=== PATIENT | male | born 1940 | race Caucasian/White ===

== ENCOUNTER 2018-01-08 16:57 | Inpatient (IN) | payer MEDICARE ==
[~2018-01-08] VITALS: Ht 182.9 cm; Wt 73.0 kg
[2018-01-08 17:02] VITALS: BP 160/77; PULSE 93; RESP 18; TEMP 98.4; O2SAT 95
--- NOTE | 2018-01-08 17:32 | PD ---
HPI Chief Complaint: Fall Time Seen by Provider: 17:13 Travel History International Travel<30 days: No Contact w/Intl Traveler<30days: No Traveled to known affect area: No History of Present Illness HPI 77 YO M presents to the ED via EMS for evaluation after fall at home. On Xarelto 2/2 to PMH of DVT. The patient states that he got tangled in his walker while going to the bathroom today. He states that he fell and hit his head on the floor. He arrives on a backboard and wearing a c-collar. He endorses pain in the left forehead. He denies dizziness, headache, vision changes, CP, palpitations, abd pain N/V, dysuria, weakness of the extremities. He denies recent history of fever, chills, cold or flu symptoms. He states that he lives at home alone. PCP, Dr. Dooley. Neuro, Dr. Monterroso. [facility] Social History Tobacco Use: No Allergies-Medications (Allergen,Severity, Reaction): Coded Allergies: No Known Allergies (Unverified , 01/08/18) Reported Meds & Prescriptions Reported Meds & Active Scripts Active Reported Potassium Chloride ER (Potassium Chloride) 8 Meq Cap Unknown Dose PO BID Furosemide 20 Mg Tab 20 Mg PO DAILY Xarelto (Rivaroxaban) 10 Mg Tab Unknown Dose PO DAILY Levothyroxine (Levothyroxine Sodium) 25 Mcg Tab Unknown Dose PO DAILY Review of Systems ROS Limitations: Speech Impaired Except as stated in HPI: all other systems reviewed are Neg Physical Exam Exam Limitations: Other: (speech impaired) Narrative GENERAL: Well-nourished, well-developed, pale white male in no acute distress. Patient was cleared off the backboard. SKIN: Focused skin assessment warm/dry. 5cm laceration on the left frontal scalp HEAD: Normocephalic. No tenderness to palpation of the skull bones. No tenderness to palpation of the facial bones. No bony step-offs. No ruiz sign or raccoon eyes. EYES: No scleral icterus. No injection or drainage. EOMI. NECK: Supple, trachea midline. No JVD or lymphadenopathy. C-collar in place pending cervical spinal CT. CARDIOVASCULAR: Regular rate and rhythm without murmurs, gallops, or rubs. RESPIRATORY: Breath sounds clear and equal bilaterally. No accessory muscle use. GASTROINTESTINAL: Abdomen soft, non-tender, nondistended. Active bowel sounds. MUSCULOSKELETAL: No cyanosis, or edema. NEUROLOGICAL: Awake and alert. Cranial nerves II through XII intact. Motor and sensory grossly within normal limits. Five out of 5 muscle strength in all muscle groups. Soft, garbled speech. Answers questions appropriately. BACK: Nontender without obvious deformity. No CVA tenderness. Data Data Last Documented VS Vital Signs Date Time Temp Pulse Resp B/P (MAP) Pulse Ox O2 Delivery O2 Flow Rate FiO2 01/08/18 19:15 74 16 154/72 (99) 98 Room Air 01/08/18 17:[address] Brain W/O Iv Contrast(Rout) (01/08/18 ) Ct Cerv Spine W/O Contrast (01/08/18 ) Complete Blood Count With Diff (01/08/18 17:20) Comprehensive Metabolic Panel (01/08/18 17:20) Prothrombin Time / Inr (Pt) (01/08/18 17:20) Act Partial Throm Time (Ptt) (01/08/18 17:20) Urinalysis - C+S If Indicated (01/08/18 17:20) Iv Access Insert/Monitor (01/08/18 17:20) Ecg Monitoring (01/08/18 17:20) Oximetry (01/08/18 17:20) Electrocardiogram (01/08/18 17:20) Tetanus/Diphtheria Tox Adult (Tetanus/Di (01/08/18 17:45) Consult Neurosurgery (01/08/18 ) (Hub Use Only)Inp Phy Cons/Ref (01/08/18 ) Admit Order (Ed Use Only) (01/08/18 20:52) Labs Laboratory Tests Test 01/08/18 17:25 01/08/18 19:45 White Blood Count 5.9 TH/MM3 Red Blood Count 3.73 MIL/MM3 Hemoglobin 11.9 GM/DL Hematocrit 34.9 % Mean Corpuscular Volume 93.7 FL Mean Corpuscular Hemoglobin 31.9 PG Mean Corpuscular Hemoglobin Concent 34.0 % Red Cell Distribution Width 13.2 % Platelet Count 236 TH/MM3 Mean Platelet Volume 8.9 FL Neutrophils (%) (Auto) 71.9 % Lymphocytes (%) (Auto) 16.2 % Monocytes (%) (Auto) 8.8 % Eosinophils (%) (Auto) 2.1 % Basophils (%) (Auto) 1.0 % Neutrophils # (Auto) 4.3 TH/MM3 Lymphocytes # (Auto) 1.0 TH/MM3 Monocytes # (Auto) 0.5 TH/MM3 Eosinophils # (Auto) 0.1 TH/MM3 Basophils # (Auto) 0.1 TH/MM3 CBC Comment DIFF FINAL Differential Comment Prothrombin Time 11.5 SEC Prothromb Time International Ratio 1.1 RATIO Activated Partial Thromboplast Time 26.6 SEC Blood Urea Nitrogen 31 MG/DL Creatinine 1.31 MG/DL Random Glucose 123 MG/DL Total Protein 6.5 GM/DL Albumin 3.3 GM/DL Calcium Level 8.8 MG/DL Alkaline Phosphatase 119 U/L Aspartate Amino Transf (AST/SGOT) 25 U/L Alanine Aminotransferase (ALT/SGPT) 19 U/L Total Bilirubin 0.3 MG/DL Sodium Level 142 MEQ/L Potassium Level 3.9 MEQ/L Chloride Level 106 MEQ/L Carbon Dioxide Level 24.2 MEQ/L Anion Gap 12 MEQ/L Estimat Glomerular Filtration Rate 53 ML/MIN Urine Color YELLOW Urine Turbidity CLEAR Urine pH 6.5 Urine Specific [place] 1.012 Urine Protein TRACE mg/dL Urine Glucose (UA) NEG mg/dL Urine Ketones NEG mg/dL Urine Occult Blood NEG Urine Nitrite NEG Urine Bilirubin NEG Urine Urobilinogen LESS THAN 2.0 MG/DL Urine Leukocyte Esterase NEG Urine RBC LESS THAN 1 /hpf Urine WBC LESS THAN 1 /hpf Microscopic Urinalysis Comment CULT NOT INDICATED MDM Medical Decision Making Medical Screen Exam Complete: Yes Emergency Medical Condition: Yes Differential Diagnosis fall versus laceration versus ICH versus metabolic derangement versus other Narrative Course 77 YO M with PMH of DVT, on Xarelto, presents to the ED via EMS for evaluation after fall at home. The patient states that he got tangled in his walker while going to the bathroom today. He denies LOC. He endorses pain in the left forehead. He denies dizziness, headache, vision changes, CP, palpitations, abd pain N/V, dysuria, weakness of the extremities, recent history of fever, chills , cold or flu symptoms. He states that he lives at home alone. Pulse 93, BP 160 /77 on presentation. On exam this is a white male in no acute distress. He has garbled speech which makes history gathering difficult. He states this is his baseline. Laceration over the left frontal scalp. No focal neuro deficits noted. Tetanus immunization was updated. Scalp laceration was repaired. CBC & BMP Diagram 01/08/18 17:25 Total Protein 6.5, Albumin 3.3 L, Calcium Level 8.8, Alkaline Phosphatase 119 H , Aspartate Amino Transf (AST/SGOT) 25, Alanine Aminotransferase (ALT/SGPT) 19, Total Bilirubin 0.3 UA: No culture indicated. CT cervical spine: No acute fracture or prevertebral soft tissue swelling. Cervical spondylosis and multilevel foraminal narrowing. No spinal stenosis. Reversal of the normal cervical lordosis. Scoliosis. Multinodular goiter. CT brain: Tiny hyperdensity within the right high parietal cortex measuring approximately 5 mm consistent with possible tiny acute cortical contusion. No acute infarct, mass effect, midline shift or extra-axial bleed. Moderate periventricular and subcortical white matter small vessel ischemic changes bilaterally. Diffuse cerebral atrophy. Subgaleal hematoma along the left high parietal skull per radiology read. I discussed the case with Dr. Shrestha, neurology. He recommends overnight observation and will see the patient tomorrow. I discussed the results of the workup with the patient as well as the recommendation for admission. He is agreeable to the plan. I spoke with Dr. Pérez who agrees to accept the patient to the medical service. Please see medicine and neuro notes for disposition. Procedures Procedure Narrative LACERATION LOCATION: Left frontal scalp LENGTH: 5 cm NUMBER OF STITCHES/EUGENE: 7 REPAIR: The laceration was infiltrated with 1% lidocaine. The wound was copiously irrigated and explored without evidence of foreign body, tendon injury or neurovascular injury. The wound was closed using surgical eugene. This was a single layer repair. The patient was advised to keep the wound clean and dry. Patient tolerated the procedure well. Diagnosis Primary Impression: Fall from standing Qualified Codes: W19.XXXA - Unspecified fall, initial encounter Additional Impressions: Scalp laceration Qualified Codes: S01.01XA - Laceration without foreign body of scalp, initial encounter Immunization, tetanus toxoid Disposition: DISCHARGE HOME Condition: Stable Gabby Bray Jan 08, 2018 17:32
[2018-01-08 17:42] LABS: AUTOMATED NEUTROPHIL # 4.3 TH/MM3 (1.8-7.7); BASOPHIL # 0.1 TH/MM3 (0-0.2); EOSINOPHIL # 0.1 TH/MM3 (0-0.4); EOSINOPHIL % 2.1 % (0.0-4.0); HEMATOCRIT 34.9 % (39.0-51.0); HEMOGLOBIN 11.9 GM/DL (13.0-17.0); LYMPH % 16.2 % (9.0-44.0); MEAN CELL VOLUME 93.7 FL (80.0-100.0); MEAN CORPUSCULAR HEMOGLOBIN 31.9 PG (27.0-34.0); MEAN PLATELET VOLUME 8.9 FL (7.0-11.0); MONO % 8.8 % (0.0-8.0); MONOCYTE # 0.5 TH/MM3 (0-0.9); NEUT % 71.9 % (16.0-70.0); PLATELET COUNT 236 TH/MM3 (150-450); RED BLOOD COUNT 3.73 MIL/MM3 (4.50-5.90); RED CELL DISTRIBUTION WIDTH 13.2 % (11.6-17.2); WHITE BLOOD COUNT 5.9 TH/MM3 (4.0-11.0)
[2018-01-08] MEDS ORDERED: TETANUS/DIPHTHERIA TOXOID ADULT 0.5 ML VIAL IM ONE (17:45)
[2018-01-08 17:52] LABS: INTERNATIONAL NORMALIZED RATIO 1.1 RATIO; PROTHROMBIN TIME - PATIENT 11.5 SEC (9.8-11.6)
[2018-01-08 18:01] LABS: ALBUMIN 3.3 GM/DL (3.4-5.0); ALT (GPT) 19 U/L (12-78); AST (GOT) 25 U/L (15-37); BICARBONATE 24.2 MEQ/L (21.0-32.0); BLOOD UREA NITROGEN 31 MG/DL (7-18); CALCIUM 8.8 MG/DL (8.5-10.1); CHLORIDE 106 MEQ/L (98-107); CREATININE 1.31 MG/DL (0.60-1.30); GLOMERULAR FILTRATION RATE 53 ML/MIN (>89); GLUCOSE,RANDOM 123 MG/DL (74-106); SODIUM (NA) 142 MEQ/L (136-145)
[2018-01-08 18:04] LABS: ALKALINE PHOSPHATASE 119 U/L (45-117); TOTAL BILIRUBIN ADULT 0.3 MG/DL (0.2-1.0); TOTAL PROTEIN 6.5 GM/DL (6.4-8.2)
--- NOTE | 2018-01-08 18:17 | RADRPT ---
EXAM DATE/TIME: 01/08/2018 17:59 [facility] COMPARISON: No previous studies available for comparison. INDICATIONS : Trauma. Fall at home. Head laceration. RADIATION DOSE: 69.15 CTDIvol (mGy) MEDICAL HISTORY : None SURGICAL HISTORY : None. ENCOUNTER: Initial ACUITY: 1 day PAIN SCALE: 6/10 LOCATION: Left cranial TECHNIQUE: Multiple contiguous axial images were obtained of the head. Using automated exposure control and adj ustment of the mA and/or kV according to patient size, radiation dose was kept as low as reasonably a chievable to obtain optimal diagnostic quality images. DICOM format image data is available electro nically for review and comparison. FINDINGS: There is evidence of a tiny hyperdensity within the right high parietal cortex measuring approximatel y 5 mm consistent with possible tiny acute cortical contusion. No extra-axial bleed is noted. Subgale al hematoma noted along the left high parietal skull. No underlying skull fracture is noted. Moderate periventricular and subcortical white matter small vessel ischemic changes are noted bilaterally. Di ffuse cerebral atrophy is also noted. No acute infarction is noted. CONCLUSION: 1. Tiny hyperdensity within the right high parietal cortex measuring approximately 5 mm consistent wi th possible tiny acute cortical contusion. 2. No acute infarct, mass effect, midline shift or extra-axial bleed. 3. Moderate periventricular and subcortical white matter small vessel ischemic changes bilaterally. 4. Diffuse cerebral atrophy. 5. Subgaleal hematoma along the left high parietal skull. Anthony Arceo MD on January 08, 2018 at 18:13 Board Certified Radiologist. This report was verified electronically.
--- NOTE | 2018-01-08 18:22 | RADRPT ---
EXAM DATE/TIME: 01/08/2018 17:59 [facility] COMPARISON: No previous studies available for comparison. INDICATIONS : Trauma. Fall at home. Neck pain. RADIATION DOSE: 32.46 CTDIvol (mGy) MEDICAL HISTORY : None SURGICAL HISTORY : None. ENCOUNTER: Initial ACUITY: 1 day PAIN SCALE: 6/10 LOCATION: neck TECHNIQUE: Volumetric scanning of the cervical spine was performed. Multiplanar reconstructions in the sagittal, coronal and oblique axial planes were performed. Using automated exposure control and adjustment o f the mA and/or kV according to patient size, radiation dose was kept as low as reasonably achievable to obtain optimal diagnostic quality images. DICOM format image data is available electronically f or review and comparison. FINDINGS: There is no acute fracture or prevertebral soft tissue swelling. Reversal of normal cervical lordosis is noted. Cervical spondylosis is noted at C5-6, C6-7 and C7-T1. No spinal stenosis is noted. No foc al disc herniation is noted the bony relationship and alignment between C1 and C2 is well maintained. Moderate left neural foramina is noted at C3-4, C4-5 as well as C6-7. Moderate right neural foramina l narrowing is noted at C2-3, C5-6, and C6-7. Multinodular goiter is noted. CONCLUSION: No acute fracture or prevertebral soft tissue swelling. Cervical spondylosis and multilevel foraminal narrowing as described above. No spinal stenosis. Reversal of the normal cervical lordosis. Scoliosi s. Multinodular goiter. Anthony Arceo MD on January 08, 2018 at 18:17 Board Certified Radiologist. This report was verified electronically.
[2018-01-08 19:15] VITALS: BP 154/72; PULSE 74; RESP 16; O2SAT 98
[2018-01-08] MEDS ORDERED: XARE10TA PO (20:11)
[2018-01-08] MEDS ORDERED: LEVO25TA4 PO (20:11)
[2018-01-08] MEDS ORDERED: POTA8CAP PO (20:11)
[2018-01-08] MEDS ORDERED: FURO20TA PO (20:11)
[2018-01-08 20:39] LABS: BILIRUBIN, URINE NEG (NEG); BLOOD, URINE NEG (NEG); GLUCOSE,URINE NEG (NEG); KETONE, URINE NEG (NEG); NITRITE,URINE NEG (NEG); PH, URINE 6.5 (5.0-8.5); URINE COLOR YELLOW (YELLW/STRAW); URINE LEUKOCYTE ESTERASE NEG (NEG)
[2018-01-08] MEDS ORDERED: NALOXONE HCL 0.4 MG/ML AMP IV PUSH PRN (21:00)
[2018-01-08] MEDS ORDERED: ONDANSETRON HCL 4 MG/2 ML VIAL IVP PRN (21:00)
[2018-01-08] MEDS ORDERED: ACETAMINOPHEN 325 MG TAB PO PRN (21:00)
[2018-01-08] MEDS ORDERED: LACTULOSE SYRUP 20 GM/30 ML CUP PO PRN (21:00)
[2018-01-08] MEDS ORDERED: MAGNESIUM HYDROXIDE SUSP 30 ML CUP PO PRN (21:00)
[2018-01-08] MEDS ORDERED: SODIUM CHLORIDE 0.9% FLUSH 10 ML FLUSH IV FLUSH PRN (21:00)
[2018-01-08] MEDS: SODIUM CHLORIDE 0.9% FLUSH 10 ML FLUSH IV FLUSH SCH (21:00)
[2018-01-08] MEDS ORDERED: BISACODYL 10 MG SUPP RECTAL PRN (21:00)
[2018-01-08] MEDS ORDERED: SENNOSIDES 8.6 MG TAB PO PRN (21:00)
[2018-01-08 21:15] VITALS: BP 132/60; PULSE 88; RESP 16; O2SAT 99
[2018-01-08 22:16] VITALS: BP 149/67; PULSE 82; RESP 13
--- NOTE | 2018-01-08 22:34 | HHI.HP ---
[facility] Service [facility] Primary Care Physician Unknown Admission Diagnosis fall, right parietal contusion Diagnoses: Chief Complaint: Fall Travel History International Travel<30 Days: No Contact w/Intl Traveler <30 Da: No Traveled to Known Affected Are: No History of Present Illness Pleasant 77-year-old male with a history of chronic myeloid leukemia, hypothyroidism, hypotension, bipolar, DVT, and demyelinating syndrome presented to the ED status post fall at home. Patient is oriented 3 and states he was walking in his house with his walker his legs felt weak and gave out and he fell to the ground striking his head and his left shoulder. Prior to the fall he denies any dizziness, chest pain, shortness of breath, fever or chills. He states he does live alone and uses his walker for ambulation around the house. His sister comes and checks on him periodically along with home health care. He currently denies any pain, says he has a slight headache from time to time. PCP Dr. Dooley. Neuro, Dr. Monterroso. Past Family Social History Past Medical History Hypotension Chronic myeloid leukemia Hypothyroidism Demyelinating syndrome DVT 2014 Past Surgical History Umbilical hernia at age 7 Skin cancer Reported Medications Reported Meds & Active Scripts Active Reported Potassium Chloride ER (Potassium Chloride) 8 Meq Cap Unknown Dose PO BID Furosemide 20 Mg Tab 20 Mg PO DAILY Xarelto (Rivaroxaban) 10 Mg Tab Unknown Dose PO DAILY Levothyroxine (Levothyroxine Sodium) 25 Mcg Tab Unknown Dose PO DAILY Allergies: Coded Allergies: No Known Allergies (Unverified , 01/08/18) Active Ordered Medications Current Medications Medications (Trade) Dose Ordered Sig/Brook Route Start Time Stop Time Status Last Admin (NS Flush) 2 ml UNSCH PRN IV FLUSH 01/08/18 21:00 (NS Flush) 2 ml BID IV FLUSH 01/08/18 21:00 (Tylenol) 650 mg Q4H PRN PO 01/08/18 21:00 (Zofran Inj) 4 mg Q6H PRN IVP 01/08/18 21:00 (Narcan Inj) 0.4 mg UNSCH PRN IV PUSH 01/08/18 21:00 (Milk Of Magnesia Liq) 30 ml Q12H PRN PO 01/08/18 21:00 (Senokot) 17.2 mg Q12H PRN PO 01/08/18 21:00 (Dulcolax Supp) 10 mg DAILY PRN RECTAL 01/08/18 21:00 (Lactulose Liq) 30 ml DAILY PRN PO 01/08/18 21:00 Family History Patient is unsure family history Social History Patient denies any tobacco, alcohol or illicit drug use Physical Exam Vital Signs Vital Signs Date Time Temp Pulse Resp B/P (MAP) Pulse Ox O2 Delivery O2 Flow Rate FiO2 01/08/18 22:16 82 13 149/67 (94) 01/08/18 21:34 01/08/18 21:15 88 16 132/60 (84) 99 Room Air 01/08/18 19:15 74 16 154/72 (99) 98 Room Air 01/08/18 17:31 98 Room Air 01/08/18 17:02 98.4 93 18 160/77 (104) 95 Physical Exam GENERAL: This is a well-nourished, well-developed patient, in no apparent distress. SKIN: Frontal laceration with eugene. Ecchymotic left shoulder. HEAD: Atraumatic. Normocephalic. EYES: Pupils equal round and reactive. Extraocular motions intact. ENT: Nose without bleeding, purulent drainage or septal hematoma. Airway patent. NECK: Trachea midline. No JVD or lymphadenopathy. CARDIOVASCULAR: Regular rate and rhythm without murmurs, gallops, or rubs. RESPIRATORY: Clear to auscultation. Breath sounds equal bilaterally. No wheezes , rales, or rhonchi. GASTROINTESTINAL: Abdomen soft, non-tender, nondistended. MUSCULOSKELETAL: Extremities without clubbing, cyanosis, or edema. No joint tenderness, effusion, or edema noted. No calf tenderness. NEUROLOGICAL: Awake and alert. Motor and sensory grossly within normal limits. Normal speech. Laboratory Laboratory Tests Test 01/08/18 17:25 01/08/18 19:45 White Blood Count 5.9 Red Blood Count 3.73 Hemoglobin 11.9 Hematocrit 34.9 Mean Corpuscular Volume 93.7 Mean Corpuscular Hemoglobin 31.9 Mean Corpuscular Hemoglobin Concent 34.0 Red Cell Distribution Width 13.2 Platelet Count 236 Mean Platelet Volume 8.9 Neutrophils (%) (Auto) 71.9 Lymphocytes (%) (Auto) 16.2 Monocytes (%) (Auto) 8.8 Eosinophils (%) (Auto) 2.1 Basophils (%) (Auto) 1.0 Neutrophils # (Auto) 4.3 Lymphocytes # (Auto) 1.0 Monocytes # (Auto) 0.5 Eosinophils # (Auto) 0.1 Basophils # (Auto) 0.1 CBC Comment DIFF FINAL Differential Comment Prothrombin Time 11.5 Prothromb Time International Ratio 1.1 Activated Partial Thromboplast Time 26.6 Blood Urea Nitrogen 31 Creatinine 1.31 Random Glucose 123 Total Protein 6.5 Albumin 3.3 Calcium Level 8.8 Alkaline Phosphatase 119 Aspartate Amino Transf (AST/SGOT) 25 Alanine Aminotransferase (ALT/SGPT) 19 Total Bilirubin 0.3 Sodium Level 142 Potassium Level 3.9 Chloride Level 106 Carbon Dioxide Level 24.2 Anion Gap 12 Estimat Glomerular Filtration Rate 53 Thyroid Stimulating Hormone 3rd Gen 0.316 Urine Color YELLOW Urine Turbidity CLEAR Urine pH 6.5 Urine Specific [place] 1.012 Urine Protein TRACE Urine Glucose (UA) NEG Urine Ketones NEG Urine Occult Blood NEG Urine Nitrite NEG Urine Bilirubin NEG Urine Urobilinogen LESS THAN 2.0 Urine Leukocyte Esterase NEG Urine RBC LESS THAN 1 Urine WBC LESS THAN 1 Microscopic Urinalysis Comment CULT NOT INDICATED Result Diagram: 01/08/18 1725 01/08/18 1725 Imaging Last Impressions Head CT 01/08/18 0000 Signed Impressions: Service Date/Time: January 17:59 - CONCLUSION: 1. Tiny hyperdensity within the right high parietal cortex measuring approximately 5 mm consistent with possible tiny acute cortical contusion. 2. No acute infarct, mass effect, midline shift or extra-axial bleed. 3. Moderate periventricular and subcortical white matter small vessel ischemic changes bilaterally. 4. Diffuse cerebral atrophy. 5. Subgaleal hematoma along the left high parietal skull. Anthony Arceo MD Cervical Spine CT 01/08/18 0000 Signed Impressions: Service Date/Time: January 17:59 - CONCLUSION: No acute fracture or prevertebral soft tissue swelling. Cervical spondylosis and multilevel foraminal narrowing as described above. No spinal stenosis. Reversal of the normal cervical lordosis. Scoliosis. Multinodular goiter. MD Floresita Hernandezi VTE Risk Assessment Caprini VTE Risk Assessment: No/Low Risk (score <= 1) Caprini Risk Assessment Model Point Value = 1 Point Value = 2 Point Value = 3 Point Value = 5 Age 41-60 Minor surgery BMI > 25 kg/m2 Swollen legs Varicose veins or History of unexplained or recurrent spontaneous Oral contraceptives or hormone replacement Sepsis (< 1 month) Serious lung disease, including pneumonia (< 1 month) Abnormal pulmonary function Acute myocardial infarction Congestive heart failure (< 1 month) History of inflammatory bowel disease Medical patient at bed rest Age 61-74 Arthroscopic surgery Major open surgery (> 45 min) Laparoscopic surgery (> 45 min) Malignancy Confined to bed (> 72 hours) Immobilizing plaster cast Central venous access Age >= 75 History of VTE Family history of VTE Factor V Leiden Prothrombin [id number] Lupus anticoagulant Anticardiolipin antibodies Elevated serum homocysteine Heparin-induced thrombocytopenia Other congenital or acquired thrombophilia Stroke (< 1 month) Elective arthroplasty Hip, pelvis, or leg fracture Acute spinal cord injury (< 1 month) Prophylaxis Regimen Total Risk Factor Score Risk Level Prophylaxis Regimen 0-1 Low Early ambulation 2 Moderate Order ONE of the following: *Sequential Compression Device (SCD) *Heparin 5000 units SQ BID 3-4 Higher Order ONE of the following medications: *Heparin 5000 units SQ TID *Enoxaparin/Lovenox 40 mg SQ daily (WT < 150 kg, CrCl > 30 mL/min) *Enoxaparin/Lovenox 30 mg SQ daily (WT < 150 kg, CrCl > 10-29 mL/min) *Enoxaparin/Lovenox 30 mg SQ BID (WT < 150 kg, CrCl > 30 mL/min) AND/OR *Sequential Compression Device (SCD) 5 or more Highest Order ONE of the following medications: *Heparin 5000 units SQ TID (Preferred with Epidurals) *Enoxaparin/Lovenox 40 mg SQ daily (WT < 150 kg, CrCl > 30 mL/min) *Enoxaparin/Lovenox 30 mg SQ daily (WT < 150 kg, CrCl > 10-29 mL/min) *Enoxaparin/Lovenox 30 mg SQ BID (WT < 150 kg, CrCl > 30 mL/min) AND *Sequential Compression Device (SCD) Assessment and Plan Problem List: (1) Fall from standing ICD Code: W19.XXXA - Unspecified fall, initial encounter Status: Acute (2) Scalp laceration ICD Code: S01.01XA - Laceration without foreign body of scalp, initial encounter Status: Acute Assessment and Plan Pleasant 77-year-old male with a history of chronic myeloid leukemia, hypothyroidism, hypotension, bipolar, DVT, and demyelinating syndrome presented to the ED status post fall at home. Brain contusion S/P Fall Head CT reviewed and shows tiny hyperdensity within the right high parietal cortex measuring approximately 5 mm consistent with possible tiny acute cortical contusion. -PT eval and treat -Fall precautions -Neuro checks -Consult neurosurgery -Pain management with PO [place] -Shoulder xray r/o fracture Scalp laceration, left frontal/ parietal -Wound care with soap and water -Monitor for infection Hypothyroidism, chronic -Resumed home medications Synthroid DVT prophylaxis: SCDs, old Xarelto until cleared by neurosurgery Discussed Condition With Patient, RN and ED physician Problem Qualifiers (1) Fall from standing: Qualified Codes: W19.XXXA - Unspecified fall, initial encounter (2) Scalp laceration: Qualified Codes: S01.01XA - Laceration without foreign body of scalp, initial encounter Yarelis Monson Jan 08, 2018 22:34
--- NOTE | 2018-01-09 00:25 | RADRPT ---
EXAM DATE/TIME: 01/09/2018 00:08 [facility] COMPARISON: No previous studies available for comparison. INDICATIONS : Fracture. Patient fell. MEDICAL HISTORY : None. SURGICAL HISTORY : None. ENCOUNTER: Initial ACUITY: 1 day PAIN SCORE: 2/10 LOCATION: Left upper extremity shoulder. FINDINGS: Multiple view examination of the left shoulder demonstrates no evidence of fracture or dislocation. The glenohumeral and acromioclavicular joints are maintained. There is normal range of motion betwee n internal and external rotation. The visualized left upper ribs are intact. Bony mineralization is normal. CONCLUSION: No evidence of fracture or dislocation. Niko Aguirre MD on January 09, 2018 at 0:23 Board Certified Radiologist. This report was verified electronically.
[2018-01-09 04:14] VITALS: BP 121/64; PULSE 82; RESP 17; TEMP 98.1; O2SAT 95
[2018-01-09] MEDS: LEVOTHYROXINE SODIUM 25 MCG TAB PO SCH (05:11)
[2018-01-09] MEDS ORDERED: ACETAMINOPHEN/HYDROcodone 325 MG/5 MG TAB PO PRN (06:15)
[2018-01-09 08:00] VITALS: BP 118/54; PULSE 75; RESP 18; TEMP 98.9; O2SAT 96
[2018-01-09 08:07] LABS: BICARBONATE 24.9 MEQ/L (21.0-32.0); CALCIUM 8.8 MG/DL (8.5-10.1); CREATININE 1.26 MG/DL (0.60-1.30)
[2018-01-09] MEDS: SODIUM CHLORIDE 0.9% FLUSH 10 ML FLUSH IV FLUSH SCH ×2 (08:54→20:59)
--- NOTE | 2018-01-09 10:13 | HHI.PR ---
Subjective Remarks Pleasant 77-year-old male with a history of chronic myeloid leukemia, hypothyroidism, hypotension, bipolar, DVT, and demyelinating syndrome presented to the ED status post fall at home. Patient is oriented 3 and states he was walking in his house with his walker his legs felt weak and gave out and he fell to the ground striking his head and his left shoulder. Prior to the fall he denies any dizziness, chest pain, shortness of breath, fever or chills. He states he does live alone and uses his walker for ambulation around the house. His sister comes and checks on him periodically along with home health care. He currently denies any pain, says he has a slight headache from time to time. PCP Dr. Dooley. Neuro, Dr. Monterroso. 3-2 AWAIT NEUROSURGICAL EVALUATIONS HOLD KARIME AT THIS TIME DUE FALL/BLEED Objective Vitals Vital Signs Date Time Temp Pulse Resp B/P (MAP) Pulse Ox O2 Delivery O2 Flow Rate FiO2 01/09/18 08:00 98.9 75 18 118/54 (75) 96 01/09/18 04:14 98.1 82 17 121/64 (83) 95 01/08/18 22:16 82 13 149/67 (94) 01/08/18 21:34 01/08/18 21:15 88 16 132/60 (84) 99 Room Air 01/08/18 19:15 74 16 154/72 (99) 98 Room Air 01/08/18 17:31 98 Room Air 01/08/18 17:02 98.4 93 18 160/77 (104) 95 I/O 01/08/18 01/08/18 01/08/18 01/09/18 01/09/18 01/09/18 07:00 15:00 23:00 07:00 15:00 23:00 Output Total 200 ml Balance -200 ml Output Urine Total 200 ml Result Diagram: 01/08/18 0753 01/09/18 0550 Other Results Laboratory Tests Test 01/08/18 17:25 01/08/18 19:45 01/09/18 05:50 White Blood Count 5.9 TH/MM3 Red Blood Count 3.73 MIL/MM3 Hemoglobin 11.9 GM/DL Hematocrit 34.9 % Mean Corpuscular Volume 93.7 FL Mean Corpuscular Hemoglobin 31.9 PG Mean Corpuscular Hemoglobin Concent 34.0 % Red Cell Distribution Width 13.2 % Platelet Count 236 TH/MM3 Mean Platelet Volume 8.9 FL Neutrophils (%) (Auto) 71.9 % Lymphocytes (%) (Auto) 16.2 % Monocytes (%) (Auto) 8.8 % Eosinophils (%) (Auto) 2.1 % Basophils (%) (Auto) 1.0 % Neutrophils # (Auto) 4.3 TH/MM3 Lymphocytes # (Auto) 1.0 TH/MM3 Monocytes # (Auto) 0.5 TH/MM3 Eosinophils # (Auto) 0.1 TH/MM3 Basophils # (Auto) 0.1 TH/MM3 CBC Comment DIFF FINAL Differential Comment Prothrombin Time 11.5 SEC Prothromb Time International Ratio 1.1 RATIO Activated Partial Thromboplast Time 26.6 SEC Blood Urea Nitrogen 31 MG/DL 27 MG/DL Creatinine 1.31 MG/DL 1.26 MG/DL Random Glucose 123 MG/DL 80 MG/DL Total Protein 6.5 GM/DL Albumin 3.3 GM/DL Calcium Level 8.8 MG/DL 8.8 MG/DL Alkaline Phosphatase 119 U/L Aspartate Amino Transf (AST/SGOT) 25 U/L Alanine Aminotransferase (ALT/SGPT) 19 U/L Total Bilirubin 0.3 MG/DL Sodium Level 142 MEQ/L 142 MEQ/L Potassium Level 3.9 MEQ/L 4.0 MEQ/L Chloride Level 106 MEQ/L 107 MEQ/L Carbon Dioxide Level 24.2 MEQ/L 24.9 MEQ/L Anion Gap 12 MEQ/L 10 MEQ/L Estimat Glomerular Filtration Rate 53 ML/MIN 56 ML/MIN Thyroid Stimulating Hormone 3rd Gen 0.316 uIU/ML Urine Color YELLOW Urine Turbidity CLEAR Urine pH 6.5 Urine Specific [place] 1.012 Urine Protein TRACE mg/dL Urine Glucose (UA) NEG mg/dL Urine Ketones NEG mg/dL Urine Occult Blood NEG Urine Nitrite NEG Urine Bilirubin NEG Urine Urobilinogen LESS THAN 2.0 MG/DL Urine Leukocyte Esterase NEG Urine RBC LESS THAN 1 /hpf Urine WBC LESS THAN 1 /hpf Microscopic Urinalysis Comment CULT NOT INDICATED Imaging Last Impressions Shoulder X-Ray 01/08/18 0000 Signed Impressions: Service Date/Time: Tuesday, January 09, 2018 00:08 - CONCLUSION: No evidence of fracture or dislocation. Niko Aguirre MD Head CT 01/08/18 0000 Signed Impressions: Service Date/Time: January 17:59 - CONCLUSION: 1. Tiny hyperdensity within the right high parietal cortex measuring approximately 5 mm consistent with possible tiny acute cortical contusion. 2. No acute infarct, mass effect, midline shift or extra-axial bleed. 3. Moderate periventricular and subcortical white matter small vessel ischemic changes bilaterally. 4. Diffuse cerebral atrophy. 5. Subgaleal hematoma along the left high parietal skull. Anthony Arceo MD Cervical Spine CT 01/08/18 0000 Signed Impressions: Service Date/Time: January 17:59 - CONCLUSION: No acute fracture or prevertebral soft tissue swelling. Cervical spondylosis and multilevel foraminal narrowing as described above. No spinal stenosis. Reversal of the normal cervical lordosis. Scoliosis. Multinodular goiter. Anthony Arceo MD Objective Remarks GENERAL: SKIN: Warm and dry. HEAD: Atraumatic. Normocephalic. EYES: Pupils equal and round. No scleral icterus. No injection or drainage. ENT: No nasal bleeding or discharge. Mucous membranes pink and moist. NECK: Trachea midline. No JVD. CARDIOVASCULAR: Regular rate and rhythm. RESPIRATORY: No accessory muscle use. Clear to auscultation. Breath sounds equal bilaterally. GASTROINTESTINAL: Abdomen soft, non-tender, nondistended. Hepatic and splenic margins not palpable. MUSCULOSKELETAL: Extremities without clubbing, cyanosis, or edema. No obvious deformities. NEUROLOGICAL: Awake and alert. No obvious cranial nerve deficits. Motor grossly within normal limits. Five out of 5 muscle strength in the arms and legs. Normal speech. PSYCHIATRIC: Appropriate mood and affect; insight and judgment normal. Procedures NONE Medications and IVs Current Medications Tetanus/ Diphtheria Toxoids (Tetanus/ Diphtheria Tox Adult) 0.5 ml ONCE ONCE IM Last administered on 01/08/18at 17:45; Start 01/08/18 at 17:45; Stop 01/08/18 at 17:46; Status DC Sodium Chloride (NS Flush) 2 ml UNSCH PRN IV FLUSH FLUSH AFTER USING IV ACCESS ; Start 01/08/18 at 21:00 Sodium Chloride (NS Flush) 2 ml BID IV FLUSH Last administered on 01/09/18at 08: 54; Start 01/08/18 at 21:00 Acetaminophen (Tylenol) 650 mg Q4H PRN PO TEMP > 100.4; Start 01/08/18 at 21:00 Ondansetron HCl (Zofran Inj) 4 mg Q6H PRN IVP NAUSEA OR VOMITING; Start at 21:00 Naloxone HCl (Narcan Inj) 0.4 mg UNSCH PRN IV PUSH SEE LABEL COMMENTS; Start at 21:00 Magnesium Hydroxide (Milk Of Magnesia Liq) 30 ml Q12H PRN PO Mild constipation ; Start 01/08/18 at 21:00 Sennosides (Senokot) 17.2 mg Q12H PRN PO Moderate constipation; Start 01/08/18 at 21:00 Bisacodyl (Dulcolax Supp) 10 mg DAILY PRN RECTAL SEVERE CONSITIPATION; Start at 21:00 Lactulose (Lactulose Liq) 30 ml DAILY PRN PO SEVERE CONSITIPATION; Start at 21:00 Levothyroxine Sodium (Synthroid) 25 mcg DAILY@0600 PO Last administered on at 05:11; Start 01/09/18 at 06:00 Acetaminophen/ Hydrocodone Bitart ([place] 5-325 Mg) 1 tab Q4H PRN PO pain; Start 01/09/18 at 06:15 A/P Problem List: (1) Fall from standing ICD Code: W19.XXXA - Unspecified fall, initial encounter Status: Acute (2) Scalp laceration ICD Code: S01.01XA - Laceration without foreign body of scalp, initial encounter Status: Acute Assessment and Plan Pleasant 77-year-old male with a history of chronic myeloid leukemia, hypothyroidism, hypotension, bipolar, DVT, and demyelinating syndrome presented to the ED status post fall at home. Brain contusion S/P Fall Head CT reviewed and shows tiny hyperdensity within the right high parietal cortex measuring approximately 5 mm consistent with possible tiny acute cortical contusion. -PT eval and treat -Fall precautions -Neuro checks -Consult neurosurgery -Pain management with PO [place] -Shoulder xray r/o fracture Scalp laceration, left frontal/ parietal -Wound care with soap and water -Monitor for infection Hypothyroidism, chronic -Resumed home medications Synthroid DVT prophylaxis: SCDs, Hold Xarelto until cleared by neurosurgery Discharge Planning PENDING NEUROSURGICAL CLEARANCE Problem Qualifiers (1) Fall from standing: Qualified Codes: W19.XXXA - Unspecified fall, initial encounter (2) Scalp laceration: Qualified Codes: S01.01XA - Laceration without foreign body of scalp, initial encounter Jon Pratt DO Jan 09, 2018 10:13
[2018-01-09 12:00] VITALS: BP 116/53; PULSE 73; RESP 16; TEMP 98.1; O2SAT 97
[2018-01-09 15:55] VITALS: BP 107/55; PULSE 79; RESP 16; TEMP 98.1; O2SAT 97
[2018-01-09 20:23] VITALS: BP 120/57; PULSE 78; RESP 17; TEMP 98; O2SAT 96
--- NOTE | 2018-01-09 23:12 | MB ---
cc: Yazan Shrestha MD DATE OF CONSULT: 01/09/2018 REASON FOR CONSULTATION: Mild head injury with cerebral contusion. HISTORY OF PRESENT ILLNESS: This is a 77-year-old gentleman who was brought to [facility] after a fall at home. The patient uses a walker to ambulate and has generalized weakness. He resides alone but he has a precision mechanical instrument maker with him who is at the bedside. He denies any numbness or paresthesias in the upper or lower extremities. Denies any neck pain. Has a mild headache. Workup included CT scan of the head which reveals a small 5 mm possible contusion along the right parietal convexity with generalized cerebral atrophy. CT of the cervical spine does not reveal any fractures. He has been admitted for observation as he is also on Xarelto for anticoagulation for chronic DVT. Overnight his neurologic condition has remained stable. PAST MEDICAL HISTORY: DVT in 2014 on anticoagulant, hypothyroidism, demyelinating syndrome followed by neurology, chronic myeloid leukemia, umbilical hernia, skin cancer, hypotension. MEDICATIONS: Xarelto 10 mg daily, potassium chloride 8 mEq b.i.d., Lasix 20 mg daily, Synthroid 25 mcg daily. ALLERGIES: NO KNOWN DRUG ALLERGIES. SOCIAL HISTORY: He is single and resides alone although has a precision mechanical instrument maker who is involved. He does not smoke or drink alcohol. REVIEW OF SYSTEMS: He has a chronic dysarthric speech and difficult to understand, likely from his multiple sclerosis but pertinent positives are mentioned in the history of present illness, otherwise negative. LABORATORY DATA: White blood cell count 5.9, hemoglobin 11.9, platelet count 326. PT 11.5. INR 1.1, PTT 26.6. Sodium 142, potassium 4.0, BUN 27, creatinine 1.26, glucose 80. PHYSICAL EXAMINATION: VITAL SIGNS: Temperature 98.9, pulse is 75, respiratory rate 18, blood pressure 118/54, oxygen saturation is 96%. HEAD: He has a left frontal laceration which has been stapled. NECK: There is some torticollis which is chronic but he is able to extend and flex and rotate without any guarding or rigidity with trachea in the midline. CHEST: Clear to auscultation bilaterally. HEART: Regular rate and rhythm, normal S1, S2. ABDOMEN: Soft, non-tender, positive bowel sounds. EXTREMITIES: No deformity or cyanosis or edema. SKIN: No rash or breakdown or pustules. EYES, EARS, NOSE AND THROAT: Eyes no subconjunctival hemorrhage and mucous membranes are moist. NEUROLOGIC: He is awake, alert. He has a very dysarthric speech which is chronic according to the precision mechanical instrument maker. Cranial nerves are grossly intact. Motor strength in the upper and lower extremities is relatively good strength other than generalized weakness. Negative Babinski. I appreciate slight ____ bilaterally. IMPRESSION: 1. Mild traumatic brain injury with a small right parietal contusion. 2. On Eliquis anticoagulation for chronic deep venous thromboses. 3. Demyelinating process with chronic deconditioning. PLAN: The patient does not require any neurosurgical intervention. I would recommend that his anticoagulation be withheld for the next 5-7 days and if his exam is stable then this can be resumed. The precision mechanical instrument maker informs me that he lives alone and at this point has generalized weakness and is high risk for falls and ____ he will benefit from physical therapy and rehab placement to prevent further deconditioning but I will defer this to the medical service. At this point he will be seen on as needed basis. MD SENG Mullins/rt , 07:11 PM , 11:10 PM
[2018-01-10 00:06] VITALS: BP 132/63; PULSE 70; RESP 17; TEMP 98.1; O2SAT 95
[2018-01-10] MEDS: LEVOTHYROXINE SODIUM 25 MCG TAB PO SCH (05:12)
[2018-01-10 06:21] LABS: AUTOMATED NEUTROPHIL # 3.7 TH/MM3 (1.8-7.7); BASOPHIL % 0.7 % (0.0-2.0); EOSINOPHIL # 0.2 TH/MM3 (0-0.4); EOSINOPHIL % 2.7 % (0.0-4.0); HEMATOCRIT 33.3 % (39.0-51.0); HEMOGLOBIN 11.2 GM/DL (13.0-17.0); LYMPH % 19.3 % (9.0-44.0); LYMPHOCYTE # 1.1 TH/MM3 (1.0-4.8); MEAN CELL VOLUME 94.1 FL (80.0-100.0); MEAN CORPUSCULAR HEMOGLOBIN 31.6 PG (27.0-34.0); MEAN CORPUSCULAR HGB CONC 33.6 % (32.0-36.0); MEAN PLATELET VOLUME 8.8 FL (7.0-11.0); MONO % 13.2 % (0.0-8.0); MONOCYTE # 0.7 TH/MM3 (0-0.9); NEUT % 64.1 % (16.0-70.0); PLATELET COUNT 209 TH/MM3 (150-450); RED BLOOD COUNT 3.54 MIL/MM3 (4.50-5.90); WHITE BLOOD COUNT 5.7 TH/MM3 (4.0-11.0)
[2018-01-10 06:46] LABS: AST (GOT) 23 U/L (15-37); BICARBONATE 24.4 MEQ/L (21.0-32.0); BLOOD UREA NITROGEN 30 MG/DL (7-18); CALCIUM 8.8 MG/DL (8.5-10.1); CHLORIDE 109 MEQ/L (98-107); CREATININE 1.31 MG/DL (0.60-1.30); GLOMERULAR FILTRATION RATE 53 ML/MIN (>89); GLUCOSE,RANDOM 87 MG/DL (74-106); MAGNESIUM 2.2 MG/DL (1.5-2.5); SODIUM (NA) 142 MEQ/L (136-145)
[2018-01-10 06:47] LABS: ALT (GPT) 19 U/L (12-78); PHOSPHORUS 3.1 MG/DL (2.5-4.9)
[2018-01-10 06:56] LABS: ALKALINE PHOSPHATASE 102 U/L (45-117); FREE T4 1.15 NG/DL (0.76-1.46); TOTAL BILIRUBIN ADULT 0.4 MG/DL (0.2-1.0); TOTAL PROTEIN 6.1 GM/DL (6.4-8.2)
[2018-01-10 08:51] VITALS: BP 100/53; PULSE 65; RESP 16; TEMP 98.2; O2SAT 96
--- NOTE | 2018-01-10 09:35 | HHI.PR ---
Subjective Remarks Pleasant 77-year-old male with a history of chronic myeloid leukemia, hypothyroidism, hypotension, bipolar, DVT, and demyelinating syndrome presented to the ED status post fall at home. Patient is oriented 3 and states he was walking in his house with his walker his legs felt weak and gave out and he fell to the ground striking his head and his left shoulder. Prior to the fall he denies any dizziness, chest pain, shortness of breath, fever or chills. He states he does live alone and uses his walker for ambulation around the house. His sister comes and checks on him periodically along with home health care. He currently denies any pain, says he has a slight headache from time to time. PCP Dr. Dooley. Neuro, Dr. Monterroso. 3-2 AWAIT NEUROSURGICAL EVALUATIONS HOLD KARIME AT THIS TIME DUE FALL/BLEED 3-3 SEEN BY NEUROSURGERY YESTERDAY WILL NEED SNF AT [place] CONTINUE PT AND OT Objective Vitals Vital Signs Date Time Temp Pulse Resp B/P (MAP) Pulse Ox O2 Delivery O2 Flow Rate FiO2 01/10/18 08:51 98.2 65 16 100/53 (69) 96 01/10/18 00:06 98.1 70 17 132/63 (86) 95 01/09/18 20:23 98.0 78 17 120/57 (78) 96 01/09/18 15:55 98.1 79 16 107/55 (72) 97 01/09/18 12:00 98.1 73 16 116/53 (74) 97 I/O 01/09/18 01/09/18 01/09/18 01/10/18 01/10/18 01/10/18 07:00 15:00 23:00 07:00 15:00 23:00 Intake Total 750 ml Output Total 200 ml 250 ml 325 ml Balance -200 ml 500 ml -325 ml Intake Oral 750 ml Output Urine Total 200 ml 250 ml 325 ml Result Diagram: 01/10/18 0535 01/10/18 0535 Other Results Laboratory Tests Test 01/08/18 17:25 01/08/18 19:45 01/09/18 05:50 01/10/18 05:35 White Blood Count 5.9 TH/MM3 5.7 TH/MM3 Red Blood Count 3.73 MIL/MM3 3.54 MIL/MM3 Hemoglobin 11.9 GM/DL 11.2 GM/DL Hematocrit 34.9 % 33.3 % Mean Corpuscular Volume 93.7 FL 94.1 FL Mean Corpuscular Hemoglobin 31.9 PG 31.6 PG Mean Corpuscular Hemoglobin Concent 34.0 % 33.6 % Red Cell Distribution Width 13.2 % 13.0 % Platelet Count 236 TH/MM3 209 TH/MM3 Mean Platelet Volume 8.9 FL 8.8 FL Neutrophils (%) (Auto) 71.9 % 64.1 % Lymphocytes (%) (Auto) 16.2 % 19.3 % Monocytes (%) (Auto) 8.8 % 13.2 % Eosinophils (%) (Auto) 2.1 % 2.7 % Basophils (%) (Auto) 1.0 % 0.7 % Neutrophils # (Auto) 4.3 TH/MM3 3.7 TH/MM3 Lymphocytes # (Auto) 1.0 TH/MM3 1.1 TH/MM3 Monocytes # (Auto) 0.5 TH/MM3 0.7 TH/MM3 Eosinophils # (Auto) 0.1 TH/MM3 0.2 TH/MM3 Basophils # (Auto) 0.1 TH/MM3 0.0 TH/MM3 CBC Comment DIFF FINAL DIFF FINAL Differential Comment Prothrombin Time 11.5 SEC Prothromb Time International Ratio 1.1 RATIO Activated Partial Thromboplast Time 26.6 SEC Blood Urea Nitrogen 31 MG/DL 27 MG/DL 30 MG/DL Creatinine 1.31 MG/DL 1.26 MG/DL 1.31 MG/DL Random Glucose 123 MG/DL 80 MG/DL 87 MG/DL Total Protein 6.5 GM/DL 6.1 GM/DL Albumin 3.3 GM/DL 3.0 GM/DL Calcium Level 8.8 MG/DL 8.8 MG/DL 8.8 MG/DL Alkaline Phosphatase 119 U/L 102 U/L Aspartate Amino Transf (AST/SGOT) 25 U/L 23 U/L Alanine Aminotransferase (ALT/SGPT) 19 U/L 19 U/L Total Bilirubin 0.3 MG/DL 0.4 MG/DL Sodium Level 142 MEQ/L 142 MEQ/L 142 MEQ/L Potassium Level 3.9 MEQ/L 4.0 MEQ/L 3.9 MEQ/L Chloride Level 106 MEQ/L 107 MEQ/L 109 MEQ/L Carbon Dioxide Level 24.2 MEQ/L 24.9 MEQ/L 24.4 MEQ/L Anion Gap 12 MEQ/L 10 MEQ/L 9 MEQ/L Estimat Glomerular Filtration Rate 53 ML/MIN 56 ML/MIN 53 ML/MIN Thyroid Stimulating Hormone 3rd Gen 0.316 uIU/ML 0.419 uIU/ML Urine Color YELLOW Urine Turbidity CLEAR Urine pH 6.5 Urine Specific [place] 1.012 Urine Protein TRACE mg/dL Urine Glucose (UA) NEG mg/dL Urine Ketones NEG mg/dL Urine Occult Blood NEG Urine Nitrite NEG Urine Bilirubin NEG Urine Urobilinogen LESS THAN 2.0 MG/DL Urine Leukocyte Esterase NEG Urine RBC LESS THAN 1 /hpf Urine WBC LESS THAN 1 /hpf Microscopic Urinalysis Comment CULT NOT INDICATED Phosphorus Level 3.1 MG/DL Magnesium Level 2.2 MG/DL Free Thyroxine 1.15 NG/DL Imaging Last Impressions Shoulder X-Ray 01/08/18 0000 Signed Impressions: Service Date/Time: Tuesday, January 09, 2018 00:08 - CONCLUSION: No evidence of fracture or dislocation. Niko Aguirre MD Head CT 01/08/18 0000 Signed Impressions: Service Date/Time: January 17:59 - CONCLUSION: 1. Tiny hyperdensity within the right high parietal cortex measuring approximately 5 mm consistent with possible tiny acute cortical contusion. 2. No acute infarct, mass effect, midline shift or extra-axial bleed. 3. Moderate periventricular and subcortical white matter small vessel ischemic changes bilaterally. 4. Diffuse cerebral atrophy. 5. Subgaleal hematoma along the left high parietal skull. Anthony Arceo MD Cervical Spine CT 01/08/18 0000 Signed Impressions: Service Date/Time: January 17:59 - CONCLUSION: No acute fracture or prevertebral soft tissue swelling. Cervical spondylosis and multilevel foraminal narrowing as described above. No spinal stenosis. Reversal of the normal cervical lordosis. Scoliosis. Multinodular goiter. Anthony Arceo MD Objective Remarks GENERAL: SKIN: Warm and dry. HEAD: Atraumatic. Normocephalic. EYES: Pupils equal and round. No scleral icterus. No injection or drainage. ENT: No nasal bleeding or discharge. Mucous membranes pink and moist. NECK: Trachea midline. No JVD. CARDIOVASCULAR: Regular rate and rhythm. RESPIRATORY: No accessory muscle use. Clear to auscultation. Breath sounds equal bilaterally. GASTROINTESTINAL: Abdomen soft, non-tender, nondistended. Hepatic and splenic margins not palpable. MUSCULOSKELETAL: Extremities without clubbing, cyanosis, or edema. No obvious deformities. NEUROLOGICAL: Awake and alert. No obvious cranial nerve deficits. Motor grossly within normal limits. Five out of 5 muscle strength in the arms and legs. Normal speech. PSYCHIATRIC: Appropriate mood and affect; insight and judgment normal. Procedures NONE Medications and IVs Current Medications Tetanus/ Diphtheria Toxoids (Tetanus/ Diphtheria Tox Adult) 0.5 ml ONCE ONCE IM Last administered on 01/08/18at 17:45; Start 01/08/18 at 17:45; Stop 01/08/18 at 17:46; Status DC Sodium Chloride (NS Flush) 2 ml UNSCH PRN IV FLUSH FLUSH AFTER USING IV ACCESS ; Start 01/08/18 at 21:00 Sodium Chloride (NS Flush) 2 ml BID IV FLUSH Last administered on 01/09/18at 20: 59; Start 01/08/18 at 21:00 Acetaminophen (Tylenol) 650 mg Q4H PRN PO TEMP > 100.4; Start 01/08/18 at 21:00 Ondansetron HCl (Zofran Inj) 4 mg Q6H PRN IVP NAUSEA OR VOMITING; Start at 21:00 Naloxone HCl (Narcan Inj) 0.4 mg UNSCH PRN IV PUSH SEE LABEL COMMENTS; Start at 21:00 Magnesium Hydroxide (Milk Of Magnesia Liq) 30 ml Q12H PRN PO Mild constipation ; Start 01/08/18 at 21:00 Sennosides (Senokot) 17.2 mg Q12H PRN PO Moderate constipation; Start 01/08/18 at 21:00 Bisacodyl (Dulcolax Supp) 10 mg DAILY PRN RECTAL SEVERE CONSITIPATION; Start at 21:00 Lactulose (Lactulose Liq) 30 ml DAILY PRN PO SEVERE CONSITIPATION; Start at 21:00 Levothyroxine Sodium (Synthroid) 25 mcg DAILY@0600 PO Last administered on at 05:12; Start 01/09/18 at 06:00 Acetaminophen/ Hydrocodone Bitart ([place] 5-325 Mg) 1 tab Q4H PRN PO pain; Start 01/09/18 at 06:15 A/P Problem List: (1) Fall from standing ICD Code: W19.XXXA - Unspecified fall, initial encounter Status: Acute (2) Scalp laceration ICD Code: S01.01XA - Laceration without foreign body of scalp, initial encounter Status: Acute Assessment and Plan Pleasant 77-year-old male with a history of chronic myeloid leukemia, hypothyroidism, hypotension, bipolar, DVT, and demyelinating syndrome presented to the ED status post fall at home. Brain contusion S/P Fall Head CT reviewed and shows tiny hyperdensity within the right high parietal cortex measuring approximately 5 mm consistent with possible tiny acute cortical contusion. -PT eval and treat -Fall precautions -Neuro checks -Consult neurosurgery-- SEEN BY NEUROSURGERY- NO INTERVENTIONS- HOLD ANTICOAGULATION -Pain management with PO [place] -Shoulder xray r/o fracture Scalp laceration, left frontal/ parietal -Wound care with soap and water -Monitor for infection Hypothyroidism, chronic -Resumed home medications Synthroid GAIT INSTABILITY PT AND OT- WILL NEED SNF AT [place] [facility] RN AND PT DVT prophylaxis: SCDs, Hold Xarelto until cleared by neurosurgery Discharge Planning PENDING SNF ACCEPTANCE- LIVES ALONE Problem Qualifiers (1) Fall from standing: Qualified Codes: W19.XXXA - Unspecified fall, initial encounter (2) Scalp laceration: Qualified Codes: S01.01XA - Laceration without foreign body of scalp, initial encounter Jon Pratt DO Jan 10, 2018 09:35
[2018-01-10] MEDS: SODIUM CHLORIDE 0.9% FLUSH 10 ML FLUSH IV FLUSH SCH ×2 (11:06→21:00)
[2018-01-10 12:01] LABS: HEMOGLOBIN A1C 5.4 % (4.3-6.0)
[2018-01-10 12:50] VITALS: BP 120/59; PULSE 71; RESP 18; TEMP 97.7; O2SAT 97
--- NOTE | 2018-01-10 12:54 | HHI.NSPN ---
(Malena Bajwa) Note Status Status: Progress Note (Malena Bajwa) Interval History Interval History This is a 77-year-old gentleman who was brought to [facility] after a fall at home. The patient uses a walker to ambulate and has generalized weakness. He resides alone but he has a party supply specialist with him who is at the bedside. He denies any numbness or paresthesias in the upper or lower extremities. Denies any neck pain. Has a mild headache. Workup included CT scan of the head which reveals a small 5 mm possible contusion along the right parietal convexity with generalized cerebral atrophy. CT of the cervical spine does not reveal any fractures. He has been admitted for observation as he is also on Xarelto for anticoagulation for chronic DVT. Overnight his neurologic condition has remained stable. 01/10: awake, conversing, mild headaches due to trauma. follows commands. (Malena Bajwa) Labs, Micro, & Vital Signs Results Date Time Temp Pulse Resp B/P (MAP) Pulse Ox O2 Delivery O2 Flow Rate FiO2 01/10/18 08:51 98.2 65 16 100/53 (69) 96 01/10/18 00:06 98.1 70 17 132/63 (86) 95 01/09/18 20:23 98.0 78 17 120/57 (78) 96 01/09/18 15:55 98.1 79 16 107/55 (72) 97 Constitutional Vital Signs Date Time Temp Pulse Resp B/P (MAP) Pulse Ox O2 Delivery O2 Flow Rate FiO2 01/10/18 08:51 98.2 65 16 100/53 (69) 96 01/10/18 00:06 98.1 70 17 132/63 (86) 95 18 20:23 98.0 78 17 120/57 (78) 96 18 15:55 98.1 79 16 107/55 (72) 97 (Malena Bajwa) Review of Systems Constitutional: DENIES: Fever Respiratory: DENIES: Hemoptysis, Shortness of breath Cardiovascular: DENIES: Chest pain Neurologic: COMPLAINS OF: Headache, Poor Balance (Malena Bajwa) Physical Exam HEAD: He has a left frontal laceration which has been stapled. clean and dry. NECK: There is some torticollis which is chronic but he is able to extend and flex and rotate without any guarding or rigidity with trachea in the midline. CHEST: Clear to auscultation bilaterally. HEART: Regular rate and rhythm, normal S1, S2. ABDOMEN: Soft, non-tender, positive bowel sounds. EXTREMITIES: No deformity or cyanosis or edema. SKIN: warm and dry EYES, EARS, NOSE AND THROAT: Eyes no subconjunctival hemorrhage NEUROLOGIC: He is awake, alert. speech very dysarthric reportedly chronic. Cranial nerves are grossly intact. Motor strength in the upper and lower extremities is relatively good strength other than generalized weakness. (Malena Bajwa) HEAD: He has a left frontal laceration which has been stapled. clean and dry. NECK: There is some torticollis which is chronic but he is able to extend and flex and rotate without any guarding or rigidity with trachea in the midline. CHEST: Clear to auscultation bilaterally. HEART: Regular rate and rhythm, normal S1, S2. ABDOMEN: Soft, non-tender, positive bowel sounds. EXTREMITIES: No deformity or cyanosis or edema. SKIN: warm and dry EYES, EARS, NOSE AND THROAT: Eyes no subconjunctival hemorrhage NEUROLOGIC: He is awake, alert. speech very dysarthric reportedly chronic. Cranial nerves are grossly intact. Motor strength in the upper and lower extremities is relatively good strength other than generalized weakness. (Nimesh Matthews MD) Medications Current Medications Current Medications Medications (Trade) Dose Ordered Sig/Brook Route PRN Reason Start Time Stop Time Status Last Admin Dose Admin Sodium Chloride (NS Flush) 2 ml UNSCH PRN IV FLUSH FLUSH AFTER USING IV ACCESS 01/08/18 21:00 Sodium Chloride (NS Flush) 2 ml BID IV FLUSH 01/08/18 21:00 01/10/18 11:06 Acetaminophen (Tylenol) 650 mg Q4H PRN PO TEMP > 100.4 01/08/18 21:00 Ondansetron HCl (Zofran Inj) 4 mg Q6H PRN IVP NAUSEA OR VOMITING 01/08/18 21:00 Naloxone HCl (Narcan Inj) 0.4 mg UNSCH PRN IV PUSH SEE LABEL COMMENTS 01/08/18 21:00 Magnesium Hydroxide (Milk Of Magnesia Liq) 30 ml Q12H PRN PO Mild constipation 01/08/18 21:00 Sennosides (Senokot) 17.2 mg Q12H PRN PO Moderate constipation 01/08/18 21:00 Bisacodyl (Dulcolax Supp) 10 mg DAILY PRN RECTAL SEVERE CONSITIPATION 01/08/18 21:00 Lactulose (Lactulose Liq) 30 ml DAILY PRN PO SEVERE CONSITIPATION 01/08/18 21:00 Levothyroxine Sodium (Synthroid) 25 mcg DAILY@0600 PO 01/09/18 06:00 01/10/18 05:12 Acetaminophen/ Hydrocodone Bitart ([place] 5-325 Mg) 1 tab Q4H PRN PO pain 01/09/18 06:15 (Malena Bajwa) Current Medications Current Medications Tetanus/ Diphtheria Toxoids (Tetanus/ Diphtheria Tox Adult) 0.5 ml ONCE ONCE IM Last administered on 01/08/18at 17:45; Start 01/08/18 at 17:45; Stop 01/08/18 at 17:46; Status DC Sodium Chloride (NS Flush) 2 ml UNSCH PRN IV FLUSH FLUSH AFTER USING IV ACCESS ; Start 01/08/18 at 21:00; Stop 01/11/18 at 10:04; Status DC Sodium Chloride (NS Flush) 2 ml BID IV FLUSH Last administered on 01/10/18at 21: 00; Start 01/08/18 at 21:00; Stop 01/11/18 at 10:04; Status DC Acetaminophen (Tylenol) 650 mg Q4H PRN PO TEMP > 100.4; Start 01/08/18 at 21:00 ; Stop 01/11/18 at 10:05; Status DC Ondansetron HCl (Zofran Inj) 4 mg Q6H PRN IVP NAUSEA OR VOMITING; Start at 21:00; Stop 01/11/18 at 10:04; Status DC Naloxone HCl (Narcan Inj) 0.4 mg UNSCH PRN IV PUSH SEE LABEL COMMENTS; Start at 21:00; Stop 01/11/18 at 10:04; Status DC Magnesium Hydroxide (Milk Of Magnesia Liq) 30 ml Q12H PRN PO Mild constipation ; Start 01/08/18 at 21:00; Stop 01/11/18 at 10:04; Status DC Sennosides (Senokot) 17.2 mg Q12H PRN PO Moderate constipation; Start 01/08/18 at 21:00; Stop 01/11/18 at 10:04; Status DC Bisacodyl (Dulcolax Supp) 10 mg DAILY PRN RECTAL SEVERE CONSITIPATION; Start at 21:00; Stop 01/11/18 at 10:04; Status DC Lactulose (Lactulose Liq) 30 ml DAILY PRN PO SEVERE CONSITIPATION; Start at 21:00; Stop 01/11/18 at 10:04; Status DC Levothyroxine Sodium (Synthroid) 25 mcg DAILY@0600 PO Last administered on at 06:04; Start 01/09/18 at 06:00 Acetaminophen/ Hydrocodone Bitart ([place] 5-325 Mg) 1 tab Q4H PRN PO pain Last administered on 01/10/18at 18:16; Start 01/09/18 at 06:15 Sodium Chloride (NS Flush) 2 ml UNSCH PRN IV FLUSH FLUSH AFTER USING IV ACCESS ; Start 01/11/18 at 10:00 Sodium Chloride (NS Flush) 2 ml BID IV FLUSH Last administered on 01/12/18at 10: 04; Start 01/11/18 at 21:00 Acetaminophen (Tylenol) 650 mg Q4H PRN PO TEMP > 100.4; Start 01/11/18 at 10:00 Ondansetron HCl (Zofran Inj) 4 mg Q6H PRN IVP NAUSEA OR VOMITING; Start at 10:00 Metoclopramide HCl (Reglan Inj) 5 mg Q6H PRN IV PUSH NAUSEA OR VOMITING; Start 01/11/18 at 10:00 Naloxone HCl (Narcan Inj) 0.4 mg UNSCH PRN IV PUSH SEE LABEL COMMENTS; Start at 10:00 Senna/Docusate Sodium (Di-Colace) 1 tab BID PO Last administered on 01/12/18at 10:04; Start 01/11/18 at 21:00 Magnesium Hydroxide (Milk Of Magnesia Liq) 30 ml Q12H PRN PO Mild constipation ; Start 01/11/18 at 10:00 Sennosides (Senokot) 17.2 mg Q12H PRN PO Moderate constipation; Start 01/11/18 at 10:00 Bisacodyl (Dulcolax Supp) 10 mg DAILY PRN RECTAL SEVERE CONSITIPATION; Start at 10:00 Lactulose (Lactulose Liq) 30 ml DAILY PRN PO SEVERE CONSITIPATION; Start at 10:00 Diatrizoate Meglum/ Diatrizoate Sod ( Gastroview Liq) 18 ml ONCE ONCE PO Last administered on 01/11/18at 12:40; Start 01/11/18 at 12:45; Stop 01/11/18 at 12: 46; Status DC Iohexol (Omnipaque 350 Inj) 97 ml STK-MED ONCE IVCONTRAST Last administered on 01/11/18at 18:17; Start 01/11/18 at 18:17; Stop 01/11/18 at 18:18; Status DC Furosemide (Lasix) 20 mg HS PO Last administered on 01/12/18at 00:18; Start at 23:30 Potassium Chloride (KCl) 10 meq HS PO ; Start 01/12/18 at 21:00 (Nimesh Matthews MD) Medical Decision Making MDM Remarks 77 y/o male 1. Mild traumatic brain injury with a small right parietal contusion. 2. On Eliquis anticoagulation for chronic deep venous thromboses. 3. Demyelinating process with chronic deconditioning. neuro examination stable (Malena Bajwa) Plan Plan Remarks cont nonsurgical management recommend that his anticoagulation be withheld for the next 5-7 days, if his exam is stable then this can be resumed physical therapy and rehab placement to prevent further deconditioning - defer this to the medical service will sign off, follow prn (Malena Bajwa) Attending Statement 1. Mild traumatic brain injury with a small right parietal contusion. 2. On Eliquis anticoagulation for chronic deep venous thromboses. 3. Demyelinating process with chronic deconditioning. Continue nonoperative neurosurgical management recommend that his anticoagulation be withheld for the next 5-7 days and if his exam is stable then this can be resumed. Daily physical therapy and rehab placement to prevent further deconditioning Pulmonary. Continue aggressive pulmonary toilette, nasotracheal suction, and breathing treatments with nebulizers. Daily PT and OT Nutrition. Tolerating Oral diet Renal. Continue to monitor closely urine output, BUN and creatinine Endocrine. Continue to Monitor serial Acu checks and SSI as needed in detail ID continue to monitor for signs of infection Continue Protonix for stress ulcer prophylaxis Continue [place] hose and SCD's for DVT prophylaxis The exam, history, and the medical decision-making described in the above note were completed with the assistance of the mid-level provider. I reviewed and agree with the findings presented. I attest that I had a [id number] encounter with the patient on the same day, and personally performed and documented my assessment and findings in the medical record. (Nimesh Matthews MD) Malena Bajwa Jan 10, 2018 12:54 Nimesh Matthews MD Jan 12, 2018 12:49
[2018-01-10 17:06] VITALS: BP 123/61; PULSE 67; RESP 18; TEMP 97.5; O2SAT 98
[2018-01-10 20:30] VITALS: BP 101/50; PULSE 75; RESP 18; TEMP 97.8; O2SAT 97
[2018-01-10 23:31] VITALS: BP 139/63; PULSE 71; RESP 18; TEMP 98.4; O2SAT 97
[2018-01-11 04:37] VITALS: BP 137/62; PULSE 66; RESP 18; TEMP 98; O2SAT 96
[2018-01-11] MEDS: LEVOTHYROXINE SODIUM 25 MCG TAB PO SCH (06:53)
[2018-01-11 08:51] VITALS: BP 120/56; PULSE 62; RESP 18; TEMP 97.8; O2SAT 96
--- NOTE | 2018-01-11 09:49 | HHI.PR ---
Subjective Remarks Pleasant 77-year-old male with a history of chronic myeloid leukemia, hypothyroidism, hypotension, bipolar, DVT, and demyelinating syndrome presented to the ED status post fall at home. Patient is oriented 3 and states he was walking in his house with his walker his legs felt weak and gave out and he fell to the ground striking his head and his left shoulder. Prior to the fall he denies any dizziness, chest pain, shortness of breath, fever or chills. He states he does live alone and uses his walker for ambulation around the house. His sister comes and checks on him periodically along with home health care. He currently denies any pain, says he has a slight headache from time to time. PCP Dr. Dooley. Neuro, Dr. Monterroso. 3-2 AWAIT NEUROSURGICAL EVALUATIONS HOLD XARELTO AT THIS TIME DUE FALL/BLEED 3-3 SEEN BY NEUROSURGERY YESTERDAY WILL NEED SNF AT DC CONTINUE PT AND OT 3-4 SEEN BY NEUROSURGERY- NO ANTICOAGULATION AT THIS TIME COMPLAINS OF RIGHT QUADRANT PAIN IN HIS ABDOMEN AM LABS TO SNF TOMORROW FOR AGGRESSIVE PT AND OT Objective Vitals Vital Signs Date Time Temp Pulse Resp B/P (MAP) Pulse Ox O2 Delivery O2 Flow Rate FiO2 01/11/18 08:51 97.8 62 18 120/56 (77) 96 01/11/18 04:37 98.0 66 18 137/62 (87) 96 01/10/18 23:31 98.4 71 18 139/63 (88) 97 01/10/18 20:30 97.8 75 18 101/50 (67) 97 01/10/18 17:06 97.5 67 18 123/61 (81) 98 01/10/18 12:50 97.7 71 18 120/59 (79) 97 I/O 01/10/18 01/10/18 01/10/18 01/11/18 01/11/18 01/11/18 07:00 15:00 23:00 07:00 15:00 23:00 Intake Total 460 ml Output Total 325 ml 450 ml Balance -325 ml 460 ml -450 ml Intake Oral 460 ml Output Urine Total 325 ml 450 ml Result Diagram: 01/10/18 0535 01/10/18 0535 Other Results Laboratory Tests Test 01/08/18 17:25 01/08/18 19:45 01/09/18 05:50 01/10/18 05:35 White Blood Count 5.9 TH/MM3 5.7 TH/MM3 Red Blood Count 3.73 MIL/MM3 3.54 MIL/MM3 Hemoglobin 11.9 GM/DL 11.2 GM/DL Hematocrit 34.9 % 33.3 % Mean Corpuscular Volume 93.7 FL 94.1 FL Mean Corpuscular Hemoglobin 31.9 PG 31.6 PG Mean Corpuscular Hemoglobin Concent 34.0 % 33.6 % Red Cell Distribution Width 13.2 % 13.0 % Platelet Count 236 TH/MM3 209 TH/MM3 Mean Platelet Volume 8.9 FL 8.8 FL Neutrophils (%) (Auto) 71.9 % 64.1 % Lymphocytes (%) (Auto) 16.2 % 19.3 % Monocytes (%) (Auto) 8.8 % 13.2 % Eosinophils (%) (Auto) 2.1 % 2.7 % Basophils (%) (Auto) 1.0 % 0.7 % Neutrophils # (Auto) 4.3 TH/MM3 3.7 TH/MM3 Lymphocytes # (Auto) 1.0 TH/MM3 1.1 TH/MM3 Monocytes # (Auto) 0.5 TH/MM3 0.7 TH/MM3 Eosinophils # (Auto) 0.1 TH/MM3 0.2 TH/MM3 Basophils # (Auto) 0.1 TH/MM3 0.0 TH/MM3 CBC Comment DIFF FINAL DIFF FINAL Differential Comment Prothrombin Time 11.5 SEC Prothromb Time International Ratio 1.1 RATIO Activated Partial Thromboplast Time 26.6 SEC Blood Urea Nitrogen 31 MG/DL 27 MG/DL 30 MG/DL Creatinine 1.31 MG/DL 1.26 MG/DL 1.31 MG/DL Random Glucose 123 MG/DL 80 MG/DL 87 MG/DL Total Protein 6.5 GM/DL 6.1 GM/DL Albumin 3.3 GM/DL 3.0 GM/DL Calcium Level 8.8 MG/DL 8.8 MG/DL 8.8 MG/DL Alkaline Phosphatase 119 U/L 102 U/L Aspartate Amino Transf (AST/SGOT) 25 U/L 23 U/L Alanine Aminotransferase (ALT/SGPT) 19 U/L 19 U/L Total Bilirubin 0.3 MG/DL 0.4 MG/DL Sodium Level 142 MEQ/L 142 MEQ/L 142 MEQ/L Potassium Level 3.9 MEQ/L 4.0 MEQ/L 3.9 MEQ/L Chloride Level 106 MEQ/L 107 MEQ/L 109 MEQ/L Carbon Dioxide Level 24.2 MEQ/L 24.9 MEQ/L 24.4 MEQ/L Anion Gap 12 MEQ/L 10 MEQ/L 9 MEQ/L Estimat Glomerular Filtration Rate 53 ML/MIN 56 ML/MIN 53 ML/MIN Thyroid Stimulating Hormone 3rd Gen 0.316 uIU/ML 0.419 uIU/ML Urine Color YELLOW Urine Turbidity CLEAR Urine pH 6.5 Urine Specific [place] 1.012 Urine Protein TRACE mg/dL Urine Glucose (UA) NEG mg/dL Urine Ketones NEG mg/dL Urine Occult Blood NEG Urine Nitrite NEG Urine Bilirubin NEG Urine Urobilinogen LESS THAN 2.0 MG/DL Urine Leukocyte Esterase NEG Urine RBC LESS THAN 1 /hpf Urine WBC LESS THAN 1 /hpf Microscopic Urinalysis Comment CULT NOT INDICATED Phosphorus Level 3.1 MG/DL Magnesium Level 2.2 MG/DL Hemoglobin A1c 5.4 % Free Thyroxine 1.15 NG/DL Imaging Last Impressions Shoulder X-Ray 01/08/18 0000 Signed Impressions: Service Date/Time: Tuesday, January 09, 2018 00:08 - CONCLUSION: No evidence of fracture or dislocation. Niko Aguirre MD Head CT 01/08/18 0000 Signed Impressions: Service Date/Time: January 17:59 - CONCLUSION: 1. Tiny hyperdensity within the right high parietal cortex measuring approximately 5 mm consistent with possible tiny acute cortical contusion. 2. No acute infarct, mass effect, midline shift or extra-axial bleed. 3. Moderate periventricular and subcortical white matter small vessel ischemic changes bilaterally. 4. Diffuse cerebral atrophy. 5. Subgaleal hematoma along the left high parietal skull. Anthony Arceo MD Cervical Spine CT 01/08/18 0000 Signed Impressions: Service Date/Time: January 17:59 - CONCLUSION: No acute fracture or prevertebral soft tissue swelling. Cervical spondylosis and multilevel foraminal narrowing as described above. No spinal stenosis. Reversal of the normal cervical lordosis. Scoliosis. Multinodular goiter. Anthony Arceo MD Objective Remarks GENERAL: SKIN: Warm and dry. HEAD: Atraumatic. Normocephalic. EYES: Pupils equal and round. No scleral icterus. No injection or drainage. ENT: No nasal bleeding or discharge. Mucous membranes pink and moist. NECK: Trachea midline. No JVD. CARDIOVASCULAR: Regular rate and rhythm. RESPIRATORY: No accessory muscle use. Clear to auscultation. Breath sounds equal bilaterally. GASTROINTESTINAL: Abdomen soft, non-tender, nondistended. Hepatic and splenic margins not palpable. MUSCULOSKELETAL: Extremities without clubbing, cyanosis, or edema. No obvious deformities. NEUROLOGICAL: Awake and alert. No obvious cranial nerve deficits. Motor grossly within normal limits. Five out of 5 muscle strength in the arms and legs. Normal speech. PSYCHIATRIC: Appropriate mood and affect; insight and judgment normal. Procedures NONE Medications and IVs Current Medications Tetanus/ Diphtheria Toxoids (Tetanus/ Diphtheria Tox Adult) 0.5 ml ONCE ONCE IM Last administered on 01/08/18at 17:45; Start 01/08/18 at 17:45; Stop 01/08/18 at 17:46; Status DC Sodium Chloride (NS Flush) 2 ml UNSCH PRN IV FLUSH FLUSH AFTER USING IV ACCESS ; Start 01/08/18 at 21:00 Sodium Chloride (NS Flush) 2 ml BID IV FLUSH Last administered on 01/10/18at 21: 00; Start 01/08/18 at 21:00 Acetaminophen (Tylenol) 650 mg Q4H PRN PO TEMP > 100.4; Start 01/08/18 at 21:00 Ondansetron HCl (Zofran Inj) 4 mg Q6H PRN IVP NAUSEA OR VOMITING; Start at 21:00 Naloxone HCl (Narcan Inj) 0.4 mg UNSCH PRN IV PUSH SEE LABEL COMMENTS; Start at 21:00 Magnesium Hydroxide (Milk Of Magnesia Liq) 30 ml Q12H PRN PO Mild constipation ; Start 01/08/18 at 21:00 Sennosides (Senokot) 17.2 mg Q12H PRN PO Moderate constipation; Start 01/08/18 at 21:00 Bisacodyl (Dulcolax Supp) 10 mg DAILY PRN RECTAL SEVERE CONSITIPATION; Start at 21:00 Lactulose (Lactulose Liq) 30 ml DAILY PRN PO SEVERE CONSITIPATION; Start 3/1/ 18 at 21:00 Levothyroxine Sodium (Synthroid) 25 mcg DAILY@0600 PO Last administered on at 06:53; Start 01/09/18 at 06:00 Acetaminophen/ Hydrocodone Bitart ([place] 5-325 Mg) 1 tab Q4H PRN PO pain Last administered on 01/10/18at 18:16; Start 01/09/18 at 06:15 A/P Problem List: (1) Fall from standing ICD Code: W19.XXXA - Unspecified fall, initial encounter Status: Acute (2) Scalp laceration ICD Code: S01.01XA - Laceration without foreign body of scalp, initial encounter Status: Acute Assessment and Plan Pleasant 77-year-old male with a history of chronic myeloid leukemia, hypothyroidism, hypotension, bipolar, DVT, and demyelinating syndrome presented to the ED status post fall at home. Brain contusion S/P Fall Head CT reviewed and shows tiny hyperdensity within the right high parietal cortex measuring approximately 5 mm consistent with possible tiny acute cortical contusion. -PT eval and treat -Fall precautions -Neuro checks -Consult neurosurgery-- SEEN BY NEUROSURGERY- NO INTERVENTIONS- HOLD ANTICOAGULATION -Pain management with PO Sm[place] -Shoulder xray r/o fracture Scalp laceration, left frontal/ parietal -Wound care with soap and water -Monitor for infection Hypothyroidism, chronic -Resumed home medications Synthroid GAIT INSTABILITY PT AND OT- WILL NEED SNF AT [facility] DW RN AND PT TO SNF ON 3-5 DVT prophylaxis: SCDs, Hold Xarelto until cleared by neurosurgery Discharge Planning PENDING SNF ACCEPTANCE- LIVES ALONE Problem Qualifiers (1) Fall from standing: Qualified Codes: W19.XXXA - Unspecified fall, initial encounter (2) Scalp laceration: Qualified Codes: S01.01XA - Laceration without foreign body of scalp, initial encounter Jon Pratt DO Jan 11, 2018 09:49
[2018-01-11] MEDS ORDERED: SENNOSIDES 8.6 MG TAB PO PRN (10:00)
[2018-01-11] MEDS ORDERED: LACTULOSE SYRUP 20 GM/30 ML CUP PO PRN (10:00)
[2018-01-11] MEDS ORDERED: METOCLOPRAMIDE HCL 10 MG/2 ML VIAL IV PUSH PRN (10:00)
[2018-01-11] MEDS ORDERED: ACETAMINOPHEN 325 MG TAB PO PRN (10:00)
[2018-01-11] MEDS ORDERED: ONDANSETRON HCL 4 MG/2 ML VIAL IVP PRN (10:00)
[2018-01-11] MEDS ORDERED: NALOXONE HCL 0.4 MG/ML AMP IV PUSH PRN (10:00)
[2018-01-11] MEDS ORDERED: MAGNESIUM HYDROXIDE SUSP 30 ML CUP PO PRN (10:00)
[2018-01-11] MEDS ORDERED: BISACODYL 10 MG SUPP RECTAL PRN (10:00)
[2018-01-11] MEDS ORDERED: SODIUM CHLORIDE 0.9% FLUSH 10 ML FLUSH IV FLUSH PRN (10:00)
[2018-01-11 12:20] VITALS: BP 122/60; PULSE 60; RESP 12; TEMP 96.9; O2SAT 98
[2018-01-11] MEDS ORDERED: DIATRIZOATE MEGLUM/DIATRIZOATE SOD 9 ML CUP PO ONE (12:45)
[2018-01-11 16:00] VITALS: BP 120/57; PULSE 71; RESP 19; TEMP 98.5; O2SAT 99
[2018-01-11] MEDS ORDERED: IOHEXOL 350 MG/ML 10 ML VIAL (for RAD DIAG) IVCONTRAST ONE (18:17)
--- NOTE | 2018-01-11 18:47 | RADRPT ---
EXAM DATE/TIME: 01/11/2018 18:13 [facility] COMPARISON: No previous studies available for comparison. INDICATIONS : Abdomen pain. IV CONTRAST: 97 cc Omnipaque 350 (iohexol) IV ORAL CONTRAST: Prescribed oral contrast ingested. RADIATION DOSE: 15.44 CTDIvol (mGy) MEDICAL HISTORY : Deep venous thrombosis. Leukemia. Hypothyroidism. SURGICAL HISTORY : None. ENCOUNTER: Initial ACUITY: 1 day PAIN SCALE: 5/10 LOCATION: Bilateral abdomen TECHNIQUE: Volumetric scanning of the abdomen and pelvis was performed. Using automated exposure control and ad justment of the mA and/or kV according to patient size, radiation dose was kept as low as reasonably achievable to obtain optimal diagnostic quality images. DICOM format image data is available electro nically for review and comparison. FINDINGS: Mild dependent atelectasis at the lung bases. No acute findings in the liver, spleen, kidneys or pancreas. There is aneurysmal dilatation of the ri t common iliac artery to 2.7 cm. There are bilateral inguinal hernias, both of which contain bowel. Left-sided inguinal hernia measure s up to about 10 cm x 8 cm and contains a loop of large bowel. Right inguinal hernia measures about 4 cm in diameter and contains a loop of small bowel. No evidence for obstruction. CONCLUSION: 1. Large left-sided inguinal hernia containing large bowel and measuring up to about 10 cm x 8 cm. 2. Small right-sided inguinal hernia containing a loop of small bowel and measuring about 4 cm in ora meter. 3. 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 4. No bowel obstruction. No free air or free fluid. Gaston Bruno MD on January 11, 2018 at 18:41 Board Certified Radiologist. This report was verified electronically.
[2018-01-11 20:09] VITALS: BP 154/68; PULSE 73; RESP 18; TEMP 98.2; O2SAT 97
[2018-01-11] MEDS: DOCUSATE SODIUM 50 MG/SENNA 8.6 MG TAB PO SCH (22:09)
[2018-01-11] MEDS: SODIUM CHLORIDE 0.9% FLUSH 10 ML FLUSH IV FLUSH SCH (22:09)
[2018-01-12] MEDS: FUROSEMIDE 20 MG TAB PO SCH ×2 (00:18→21:35)
[2018-01-12 00:43] VITALS: BP 153/68; PULSE 70; RESP 18; TEMP 97.7; O2SAT 98
[2018-01-12 05:20] VITALS: BP 110/59; PULSE 64; RESP 18; TEMP 97.1; O2SAT 95
[2018-01-12] MEDS: LEVOTHYROXINE SODIUM 25 MCG TAB PO SCH (06:04)
[2018-01-12 08:56] VITALS: BP 116/58; PULSE 67; RESP 16; TEMP 98.5; O2SAT 98
[2018-01-12 09:37] LABS: AUTOMATED NEUTROPHIL # 3.5 TH/MM3 (1.8-7.7); BASOPHIL % 0.6 % (0.0-2.0); EOSINOPHIL # 0.2 TH/MM3 (0-0.4); EOSINOPHIL % 3.1 % (0.0-4.0); HEMATOCRIT 35.4 % (39.0-51.0); LYMPH % 15.2 % (9.0-44.0); LYMPHOCYTE # 0.8 TH/MM3 (1.0-4.8); MEAN CELL VOLUME 94.2 FL (80.0-100.0); MEAN CORPUSCULAR HEMOGLOBIN 31.8 PG (27.0-34.0); MEAN CORPUSCULAR HGB CONC 33.7 % (32.0-36.0); MONO % 12.8 % (0.0-8.0); MONOCYTE # 0.7 TH/MM3 (0-0.9); NEUT % 68.3 % (16.0-70.0); PLATELET COUNT 213 TH/MM3 (150-450); RED BLOOD COUNT 3.76 MIL/MM3 (4.50-5.90); RED CELL DISTRIBUTION WIDTH 13.1 % (11.6-17.2); WHITE BLOOD COUNT 5.2 TH/MM3 (4.0-11.0)
[2018-01-12] MEDS: SODIUM CHLORIDE 0.9% FLUSH 10 ML FLUSH IV FLUSH SCH ×2 (10:04→21:35)
[2018-01-12] MEDS: DOCUSATE SODIUM 50 MG/SENNA 8.6 MG TAB PO SCH ×2 (10:04→21:35)
[2018-01-12 10:15] LABS: AST (GOT) 23 U/L (15-37); BICARBONATE 27.9 MEQ/L (21.0-32.0); BLOOD UREA NITROGEN 31 MG/DL (7-18); CALCIUM 8.7 MG/DL (8.5-10.1); CHLORIDE 109 MEQ/L (98-107); CREATININE 1.36 MG/DL (0.60-1.30); GLOMERULAR FILTRATION RATE 51 ML/MIN (>89); GLUCOSE,RANDOM 82 MG/DL (74-106); MAGNESIUM 2.2 MG/DL (1.5-2.5); SODIUM (NA) 143 MEQ/L (136-145)
[2018-01-12 10:18] LABS: ALKALINE PHOSPHATASE 105 U/L (45-117); ALT (GPT) 19 U/L (12-78); PHOSPHORUS 3.5 MG/DL (2.5-4.9); TOTAL BILIRUBIN ADULT 0.4 MG/DL (0.2-1.0); TOTAL PROTEIN 6.5 GM/DL (6.4-8.2)
[2018-01-12 12:47] VITALS: BP 128/63; PULSE 68; RESP 17; TEMP 98.3; O2SAT 98
[2018-01-12] MEDS ORDERED: XARE10TA PO (14:47)
--- NOTE | 2018-01-12 14:48 | HHI.DCPOC ---
Discharge Care Plan Diagnosis: (1) Contusion (2) Generalized weakness (3) Fall from standing (4) Scalp laceration Goals to Promote Your Health * To prevent worsening of your condition and complications * To maintain your health at the optimal level Directions to Meet Your Goals Take your medications as prescribed Follow your dietary instruction Follow activity as directed Keep your appointments as scheduled Take your immunizations and boosters as scheduled If your symptoms worsen call your PCP, if no PCP go to Urgent Care Center or Emergency Room Smoking is Dangerous to Your Health. Avoid second hand smoke Call the 24-hour hour crisis hotline for domestic abuse at Tristan Obrien DO Jan 12, 2018 14:48
--- NOTE | 2018-01-12 14:59 | HHI.DS ---
Discharge Summary Admission Date Jan 09, 2018 at 10:24 Discharge Date: Jan 12, 2018 Admitting Diagnosis fall, right parietal contusion (1) Fall from standing ICD Code: W19.XXXA - Unspecified fall, initial encounter Diagnosis: Principal Status: Acute (2) Scalp laceration ICD Code: S01.01XA - Laceration without foreign body of scalp, initial encounter Status: Acute (3) Contusion ICD Code: T14.8XXA - Other injury of unspecified body region, initial encounter Diagnosis: Principal (4) Generalized weakness ICD Code: R53.1 - Weakness Diagnosis: Principal Procedures NONE Brief History - From Admission Pleasant 77-year-old male with a history of chronic myeloid leukemia, hypothyroidism, hypotension, bipolar, DVT, and demyelinating syndrome presented to the ED status post fall at home. Patient is oriented 3 and states he was walking in his house with his walker his legs felt weak and gave out and he fell to the ground striking his head and his left shoulder. Prior to the fall he denies any dizziness, chest pain, shortness of breath, fever or chills. He states he does live alone and uses his walker for ambulation around the house. His sister comes and checks on him periodically along with home health care. He currently denies any pain, says he has a slight headache from time to time. PCP Dr. Dooley. Neuro, Dr. Monterroso. CBC/BMP: 01/12/18 0804 01/12/18 0804 Significant Findings Laboratory Tests Test 01/10/18 05:35 01/12/18 08:04 Red Blood Count 3.54 MIL/MM3 (4.50-5.90) 3.76 MIL/MM3 (4.50-5.90) Hemoglobin 11.2 GM/DL (13.0-17.0) 12.0 GM/DL (13.0-17.0) Hematocrit 33.3 % (39.0-51.0) 35.4 % (39.0-51.0) Monocytes (%) (Auto) 13.2 % (0.0-8.0) 12.8 % (0.0-8.0) Blood Urea Nitrogen 30 MG/DL (7-18) 31 MG/DL (7-18) Creatinine 1.31 MG/DL (0.60-1.30) 1.36 MG/DL (0.60-1.30) Total Protein 6.1 GM/DL (6.4-8.2) Albumin 3.0 GM/DL (3.4-5.0) 3.0 GM/DL (3.4-5.0) Chloride Level 109 MEQ/L (98-107) 109 MEQ/L (98-107) Estimat Glomerular Filtration Rate 53 ML/MIN (>89) 51 ML/MIN (>89) Lymphocytes # (Auto) 0.8 TH/MM3 (1.0-4.8) Imaging Last Impressions Abdomen/Pelvis CT 01/11/18 0000 Signed Impressions: Service Date/Time: Thursday, January 11, 2018 18:13 - CONCLUSION: 1. Large left-sided inguinal hernia containing large bowel and measuring up to about 10 cm x 8 cm. 2. Small right-sided inguinal hernia containing a loop of small bowel and measuring about 4 cm in diameter. 3. 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 4. No bowel obstruction. No free air or free fluid. Gaston Bruno MD Shoulder X-Ray 01/08/18 0000 Signed Impressions: Service Date/Time: Tuesday, January 09, 2018 00:08 - CONCLUSION: No evidence of fracture or dislocation. Niko Aguirre MD Head CT 01/08/18 0000 Signed Impressions: Service Date/Time: January 17:59 - CONCLUSION: 1. Tiny hyperdensity within the right high parietal cortex measuring approximately 5 mm consistent with possible tiny acute cortical contusion. 2. No acute infarct, mass effect, midline shift or extra-axial bleed. 3. Moderate periventricular and subcortical white matter small vessel ischemic changes bilaterally. 4. Diffuse cerebral atrophy. 5. Subgaleal hematoma along the left high parietal skull. Anthony Arceo MD Cervical Spine CT 01/08/18 0000 Signed Impressions: Service Date/Time: January 17:59 - CONCLUSION: No acute fracture or prevertebral soft tissue swelling. Cervical spondylosis and multilevel foraminal narrowing as described above. No spinal stenosis. Reversal of the normal cervical lordosis. Scoliosis. Multinodular goiter. Anthony Arceo MD PE at Discharge GENERAL: Resting comfortably. SKIN: Warm and dry. HEAD: Atraumatic. Normocephalic. EYES: Pupils equal and round. No scleral icterus. No injection or drainage. ENT: No nasal bleeding or discharge. Mucous membranes pink and moist. NECK: Trachea midline. No JVD. CARDIOVASCULAR: Regular rate and rhythm. RESPIRATORY: No accessory muscle use. Clear to auscultation. Breath sounds equal bilaterally. GASTROINTESTINAL: Abdomen soft, non-tender, nondistended. Hepatic and splenic margins not palpable. MUSCULOSKELETAL: Extremities without clubbing, cyanosis, or edema. No obvious deformities. Mild tenderness to inferior right ribs. NEUROLOGICAL: Awake and alert. No obvious cranial nerve deficits. Motor grossly within normal limits. Five out of 5 muscle strength in the arms, 3/5 in the legs. Slow speech. PSYCHIATRIC: Appropriate mood and affect; insight and judgment normal. Pt update on day of discharge The patient said that his abdominal pain has improved. He said that he has hernias and they have been there for 20 years. He requests going to [place] for rehabilitation. Discussed with nursing and case management. Hospital Course Fall Pleasant 77-year-old male with a history of chronic myeloid leukemia, hypothyroidism, hypotension, bipolar, DVT, and demyelinating syndrome who presented to the ED status post fall at home. Head CT reviewed showed tiny hyperdensity within the right high parietal cortex measuring approximately 5 mm consistent with possible tiny acute cortical contusion. Neurosurgery was consulted and recommended conservative management. Anticoagulation was held and should be resumed in 5-7 days if exam remains stable. He worked with PT and OT. He was placed on fall precautions and neuro checks. He received pain control as needed. He received wound care as needed. Abdominal pain The pt reported RUQ abdominal pain. CT showed: Large left-sided inguinal hernia containing large bowel and measuring up to about 10 cm x 8 cm; Small right- sided inguinal hernia containing a loop of small bowel and measuring about 4 cm in diameter; 2.7 cm right common iliac artery aneurysm. On exam the pt actually indicated that he had right sided rib pain rather than abdominal pain. It improved. He says the hernias are chronic. He will have follow-up with his PCP. Pt Condition on Discharge: Stable Discharge Disposition: Discharge to SNF Discharge Time: > 30 minutes Discharge Instructions DIET: Follow Instructions for: Heart Healthy Diet Activities you can perform: Weight Bearing as Lila Follow up Referrals: Neurosurgery - 2 Weeks with Nimesh Matthews MD PCP Follow-up - 1 Week New Medications: Hydrocodone/Acetaminophen (Hydrocodone-Acetamin 5-325 mg) 5 Mg-325 Mg Tablet 1 TAB PO Q6HR PRN for pain, #12 TAB Changed Medications: Rivaroxaban (Xarelto) 10 Mg Tab 10 MG PO DAILY for Blood Clot Prevention, #1 TAB 0 Refills (Changed from: Unknown Dose ) DO NOT START TAKING UNTIL INSTRUCTED TO DO SO Continued Medications: Furosemide (Furosemide) 20 Mg Tab 20 MG PO DAILY, #30 TAB 0 Refills Levothyroxine (Levothyroxine) 25 Mcg Tab Unknown Dose PO DAILY for Thyroid, #30 TAB 0 Refills Potassium Chloride ER (Potassium Chloride ER) 8 Meq Cap Unknown Dose PO BID for Electrolyte Replacement, #60 CAP 0 Refills Tristan Obrien DO Jan 12, 2018 14:59
[2018-01-12] MEDS ORDERED: HYDR-3516 PO (15:00)
[2018-01-12 16:59] VITALS: BP 130/58; PULSE 76; RESP 17; TEMP 97.9; O2SAT 97
--- NOTE | 2018-01-12 18:06 | HHI.PR ---
Subjective Remarks The patient said that his abdominal pain has improved. He said that he has hernias and they have been there for 20 years. He requests going to [place] for rehabilitation. Discussed with nursing and case management. Objective Vitals Vital Signs Date Time Temp Pulse Resp B/P (MAP) Pulse Ox O2 Delivery O2 Flow Rate FiO2 01/12/18 12:47 98.3 68 17 128/63 (84) 98 01/12/18 08:56 98.5 67 16 116/58 (77) 98 01/12/18 05:20 97.1 64 18 110/59 (76) 95 01/12/18 00:43 97.7 70 18 153/68 (96) 98 01/11/18 20:09 98.2 73 18 154/68 (96) 97 I/O 01/11/18 01/11/18 01/11/18 01/12/18 01/12/18 01/12/18 07:00 15:00 23:00 07:00 15:00 23:00 Intake Total 460 ml Output Total 450 ml 400 ml 300 ml Balance 460 ml -450 ml -400 ml -300 ml Intake Oral 460 ml Output Urine Total 450 ml 400 ml 300 ml Result Diagram: 01/12/18 0804 01/12/18 0804 Imaging Last Impressions Abdomen/Pelvis CT 01/11/18 0000 Signed Impressions: Service Date/Time: Thursday, January 11, 2018 18:13 - CONCLUSION: 1. Large left-sided inguinal hernia containing large bowel and measuring up to about 10 cm x 8 cm. 2. Small right-sided inguinal hernia containing a loop of small bowel and measuring about 4 cm in diameter. 3. 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 4. No bowel obstruction. No free air or free fluid. Gaston Bruno MD Shoulder X-Ray 01/08/18 0000 Signed Impressions: Service Date/Time: Tuesday, January 09, 2018 00:08 - CONCLUSION: No evidence of fracture or dislocation. Niko Aguirre MD Head CT 01/08/18 0000 Signed Impressions: Service Date/Time: January 17:59 - CONCLUSION: 1. Tiny hyperdensity within the right high parietal cortex measuring approximately 5 mm consistent with possible tiny acute cortical contusion. 2. No acute infarct, mass effect, midline shift or extra-axial bleed. 3. Moderate periventricular and subcortical white matter small vessel ischemic changes bilaterally. 4. Diffuse cerebral atrophy. 5. Subgaleal hematoma along the left high parietal skull. Anthony Arceo MD Cervical Spine CT 01/08/18 0000 Signed Impressions: Service Date/Time: January 17:59 - CONCLUSION: No acute fracture or prevertebral soft tissue swelling. Cervical spondylosis and multilevel foraminal narrowing as described above. No spinal stenosis. Reversal of the normal cervical lordosis. Scoliosis. Multinodular goiter. Anthony Arceo MD Objective Remarks GENERAL: Resting comfortably. SKIN: Warm and dry. HEAD: Atraumatic. Normocephalic. EYES: Pupils equal and round. No scleral icterus. No injection or drainage. ENT: No nasal bleeding or discharge. Mucous membranes pink and moist. NECK: Trachea midline. No JVD. CARDIOVASCULAR: Regular rate and rhythm. RESPIRATORY: No accessory muscle use. Clear to auscultation. Breath sounds equal bilaterally. GASTROINTESTINAL: Abdomen soft, non-tender, nondistended. Hepatic and splenic margins not palpable. MUSCULOSKELETAL: Extremities without clubbing, cyanosis, or edema. No obvious deformities. Mild tenderness to inferior right ribs. NEUROLOGICAL: Awake and alert. No obvious cranial nerve deficits. Motor grossly within normal limits. Five out of 5 muscle strength in the arms, 3/5 in the legs. Slow speech. PSYCHIATRIC: Appropriate mood and affect; insight and judgment normal. Procedures NONE Medications and IVs Current Medications Medications (Trade) Dose Ordered Sig/Brook Route Start Time Stop Time Status Last Admin (Synthroid) 25 mcg DAILY@0600 PO 01/09/18 06:00 01/12/18 06:04 ([place] 5-325 Mg) 1 tab Q4H PRN PO 01/09/18 06:15 01/10/18 18:16 (NS Flush) 2 ml UNSCH PRN IV FLUSH 01/11/18 10:00 (NS Flush) 2 ml BID IV FLUSH 01/11/18 21:00 01/12/18 10:04 (Tylenol) 650 mg Q4H PRN PO 01/11/18 10:00 (Zofran Inj) 4 mg Q6H PRN IVP 01/11/18 10:00 (Reglan Inj) 5 mg Q6H PRN IV PUSH 01/11/18 10:00 (Narcan Inj) 0.4 mg UNSCH PRN IV PUSH 01/11/18 10:00 (Di-Colace) 1 tab BID PO 01/11/18 21:00 01/12/18 10:04 (Milk Of Magnesia Liq) 30 ml Q12H PRN PO 01/11/18 10:00 (Senokot) 17.2 mg Q12H PRN PO 01/11/18 10:00 (Dulcolax Supp) 10 mg DAILY PRN RECTAL 01/11/18 10:00 (Lactulose Liq) 30 ml DAILY PRN PO 01/11/18 10:00 (Lasix) 20 mg HS PO 01/11/18 23:30 01/12/18 00:18 (KCl) 10 meq HS PO 01/12/18 21:00 A/P Problem List: (1) Fall from standing ICD Code: W19.XXXA - Unspecified fall, initial encounter Status: Acute (2) Scalp laceration ICD Code: S01.01XA - Laceration without foreign body of scalp, initial encounter Status: Acute (3) Contusion ICD Code: T14.8XXA - Other injury of unspecified body region, initial encounter (4) Generalized weakness ICD Code: R53.1 - Weakness Assessment and Plan Fall Pleasant 77-year-old male with a history of chronic myeloid leukemia, hypothyroidism, hypotension, bipolar, DVT, and demyelinating syndrome who presented to the ED status post fall at home. Head CT reviewed showed tiny hyperdensity within the right high parietal cortex measuring approximately 5 mm consistent with possible tiny acute cortical contusion. Neurosurgery was consulted and recommended conservative management. Anticoagulation was held and should be resumed in 5-7 days if exam remains stable. He worked with PT and OT. He was placed on fall precautions and neuro checks. He received pain control as needed. He received wound care as needed. Abdominal pain The pt reported RUQ abdominal pain. CT showed: Large left-sided inguinal hernia containing large bowel and measuring up to about 10 cm x 8 cm; Small right- sided inguinal hernia containing a loop of small bowel and measuring about 4 cm in diameter; 2.7 cm right common iliac artery aneurysm. On exam the pt actually indicated that he had right sided rib pain rather than abdominal pain. It improved. He says the hernias are chronic. He will have follow-up with his PCP. PPx: SCDs Discharge Planning D/c when bed available Problem Qualifiers (1) Fall from standing: Qualified Codes: W19.XXXA - Unspecified fall, initial encounter (2) Scalp laceration: Qualified Codes: S01.01XA - Laceration without foreign body of scalp, initial encounter Tristan Obrien DO Jan 12, 2018 18:06
[2018-01-12] MEDS ORDERED: POTASSIUM CHLORIDE 10 MEQ CONTROLLED RELEASE TAB PO SCH (21:00)
[2018-01-12 21:15] VITALS: BP 128/59; PULSE 75; RESP 19; TEMP 97.7; O2SAT 98
--- NOTE | 2018-01-12 23:44 | HHI.NSPN ---
History Chief Complaint: no complaints Interval History 77-year-old male-traumatic brain injury. Exam Results Vital Signs Date Time Temp Pulse Resp B/P (MAP) Pulse Ox O2 Delivery O2 Flow Rate FiO2 01/12/18 21:15 97.7 75 19 128/59 (82) 98 01/08/18 21:15 Room Air Intake and Output 01/12/18 01/12/18 01/13/18 08:00 16:00 00:00 Intake Total 400 ml Output Total 300 ml Balance -300 ml 400 ml Physical Examination HEAD: He has a left frontal laceration which has been stapled. clean and dry. NECK: Mild discomfort with limited range of motion. No nuchal rigidity CHEST: Clear to auscultation bilaterally. HEART: Regular rate and rhythm, normal S1, S2. ABDOMEN: Soft, non-tender, positive bowel sounds. EXTREMITIES: No deformity or cyanosis or edema. SKIN: warm and dry EYES, EARS, NOSE AND THROAT: Eyes no subconjunctival hemorrhage NEUROLOGIC: He is awake, alert. speech very dysarthric reportedly chronic. Cranial nerves are grossly intact. Motor strength in the upper and lower extremities is relatively good strength other than generalized weakness. Lab, Micro, Other Results Laboratory Tests Test 01/12/18 08:04 White Blood Count 5.2 TH/MM3 Red Blood Count 3.76 MIL/MM3 Hemoglobin 12.0 GM/DL Hematocrit 35.4 % Mean Corpuscular Volume 94.2 FL Mean Corpuscular Hemoglobin 31.8 PG Mean Corpuscular Hemoglobin Concent 33.7 % Red Cell Distribution Width 13.1 % Platelet Count 213 TH/MM3 Mean Platelet Volume 9.0 FL Neutrophils (%) (Auto) 68.3 % Lymphocytes (%) (Auto) 15.2 % Monocytes (%) (Auto) 12.8 % Eosinophils (%) (Auto) 3.1 % Basophils (%) (Auto) 0.6 % Neutrophils # (Auto) 3.5 TH/MM3 Lymphocytes # (Auto) 0.8 TH/MM3 Monocytes # (Auto) 0.7 TH/MM3 Eosinophils # (Auto) 0.2 TH/MM3 Basophils # (Auto) 0.0 TH/MM3 CBC Comment DIFF FINAL Differential Comment Blood Urea Nitrogen 31 MG/DL Creatinine 1.36 MG/DL Random Glucose 82 MG/DL Total Protein 6.5 GM/DL Albumin 3.0 GM/DL Calcium Level 8.7 MG/DL Phosphorus Level 3.5 MG/DL Magnesium Level 2.2 MG/DL Alkaline Phosphatase 105 U/L Aspartate Amino Transf (AST/SGOT) 23 U/L Alanine Aminotransferase (ALT/SGPT) 19 U/L Total Bilirubin 0.4 MG/DL Sodium Level 143 MEQ/L Potassium Level 4.5 MEQ/L Chloride Level 109 MEQ/L Carbon Dioxide Level 27.9 MEQ/L Anion Gap 6 MEQ/L Estimat Glomerular Filtration Rate 51 ML/MIN Medical Decision Making Impression and Plan Impression: Stable neurologic exam following traumatic brain injury. Significant dysarthria which may be chronic for history. Plan: Discussed with patient Continue therapy Out of bed as tolerated Diet as tolerated Disposition-possible inpatient rehabilitation pending. Dariusz Vila MD Jan 12, 2018 23:44
[2018-01-13 00:40] VITALS: BP 129/69; PULSE 69; RESP 20; TEMP 98.1; O2SAT 97
[2018-01-13] MEDS: LEVOTHYROXINE SODIUM 25 MCG TAB PO SCH (05:19)
[2018-01-13 05:30] VITALS: BP 125/60; PULSE 80; RESP 20; TEMP 97.9; O2SAT 98
[2018-01-13] MEDS: DOCUSATE SODIUM 50 MG/SENNA 8.6 MG TAB PO SCH (08:19)
[2018-01-13] MEDS: SODIUM CHLORIDE 0.9% FLUSH 10 ML FLUSH IV FLUSH SCH (08:24)
== END 2018-01-13 12:49 | DRG 604 ==
LOC: NEPE 16:57 → NEDA 20:55 → NEPFCDU 21:39 → OBSVTOIN 01-09 10:24 → N05B 01-11 13:43
PROVIDERS: ADMIT Hospitalist; ATTEND Hospitalist
PROC: 0HQ0XZZ Repair Scalp Skin, External Approach (ICD-10-PCS; principal; 2018-01-08)
DX: S01.01XA Laceration without foreign body of scalp, initial encounter (principal); S06.310A Contusion and laceration of right cerebrum without loss of consciousness, initial encounter; G37.9 Demyelinating disease of central nervous system, unspecified; I95.9 Hypotension, unspecified; R47.1 Dysarthria and anarthria; E03.9 Hypothyroidism, unspecified; M47.812 Spondylosis without myelopathy or radiculopathy, cervical region; R53.1 Weakness; W01.198A Fall on same level from slipping, tripping and stumbling with subsequent striking against other object, initial encounter; Y92.012 Bathroom of single-family (private) house as the place of occurrence of the external cause; Z85.6 Personal history of leukemia; Z86.718 Personal history of other venous thrombosis and embolism; Z79.01 Long term (current) use of anticoagulants; Z23 Encounter for immunization
CPT/HCPCS: 12002; 70450; 72125; 73030; 74177; 80048; 80053; 81001; 83036; 83735; 84100; 84439; 84443; 85025; 85610; 85730; 90471; 90714; G0378; G8987-GP; G8988-GP; Q9963; Q9967